=== PATIENT | female | born 1950 | race Caucasian/White ===

== ENCOUNTER → 2024-01-01 08:19 | Outpatient (REF) | payer MEDICARE, SELFPAY | LOC: HWRAD 08:19 | PROVIDERS: ATTENDING PHYSICIAN Internal Medicine Gastroenterology; FAMILY PHYSICIAN Nurse Practitioner | DX: K76.0 Fatty (change of) liver, not elsewhere classified (principal) | CPT/HCPCS: 76700 ==

== ENCOUNTER 2024-04-22 10:38 | Emergency (ER) | payer MEDICARE, SELFPAY ==
[2024-04-22 10:46] VITALS: BP 141/61
[2024-04-22 11:11] VITALS: BP 129/64
--- NOTE | 2024-04-22 11:19 | ED.GENMED ---
Addendum entered and electronically signed by Jurgen Butt PA-C 04/25/24 08:18:
On cefuroxime, appropriate per C&S
Original Note:
History of Present Illness
General
Chief Complaint: Change in Mental Status
Source: patient, records, spouse and family
Time Seen by Provider: 04/22/24 10:56
History of Present Illness
History of Present Illness:
73-year-old female with past medical history of hypertension, GERD, nonalcoholic liver cirrhosis, insulin-dependent diabetes and hypothyroidism presenting to the emergency department with family for that patient has had some increased confusion
since Sunday noting that she seems to be having trouble having conversations as well as performing routine tasks seem to be more difficult than usual. Family notes that patient has had waxing and waning chronic diarrhea for months, diminished p.o.
intake and difficulty sleeping as well. Family reported chills yesterday but no fever. Daughter performed a take-home urine test which she thought was positive but patient is not taking any medications for UTI at this time. Family stating that
patient's symptoms today seem similar to when she needed to be admitted to [facility] about 2 years ago with a pneumonia and flu which led to patient being in DKA. Patient herself complaints other than fatigue at this time.
Past History
Past History
ED Past Medical History: HTN, IDDM, Other (Cirrhosis, pulmonary embolism ) and Other (Diabetes, nonalcoholic cirrhosis, hypothyroidism, hypertension )
ED Past Surgical History: Orthopedic and Other
Social History
Tobacco: Non-smoker
Alcohol: None
Drug: None
Personal:
Living: with family
Family History
Family History: Other (stroke, CHF, )
Review of Systems
Review of Systems
All Other Systems: ROS reviewed and negative except as documented in HPI and ROS
Phy Exam
Physical Exam
Physical Exam:
GENERAL: Alert , in no apparent distress
EYE: clear conjunctiva b/l
HEAD: NCAT
ENT: o/p clr, mmm.
CARDIAC: Regular rate and rhythm .
LUNGS: Clear breath sounds bilaterally, no acute respiratory distress, no wheezes/rales/rhonchi
ABDOMEN: Soft, without focal tenderness, no r/g, no cvat, vertically oriented midline abdominal scar is well-healed, no large ascites
NEUROLOGICAL: Alert and oriented to self and place but unaware of time, tremor with arms extended, no clonus
SKIN: Warm and dry, skin intact.
MUSCULOSKELETAL: No edema, well perfused.
PSYCH: Normal and appropriate interaction.
Scores
Heart Failure Risk
Heart Failure Risk Score: Not Applicable
Heart Score for Chest Pain Patients
STEMI patient?: Not applicable
Withdrawal Assessment of Alcohol
Withdrawal Assessment Completed?: Not applicable
Course
Orders/Labs/Results
Orders:
Orders
04/22/24 11:12
Ammonia Urgent
CBC/With Diff [Complete Blood Count/With Diff] Urgent
CMP [Comprehensive Metabolic Panel] Urgent
04/22/24 11:17
Electrocardiogram (*1) Urgent
Reason for Study: Other
Other Reason for Exam: AMS
EKG- Treatment ONCE
CR Chest - 2 Views Urgent
Comment:
Reason For Exam: change in mental status
04/22/24 11:41
Urinalysis Reflex To Culture Urgent
Date Specimen was Collected: 04/22/24
Time Specimen was Collected: 11:32
Urine Microscopic Reflex Cult Urgent
Urine Culture Urgent
IFEANYI Source: U
Specimen Description:
Date Specimen was Collected: 04/22/24
Time Specimen was Collected: 11:32
04/22/24 11:55
0.9% Sodium Chloride 1000 ml [Nss] 1,000 ml IV BOLUS
04/22/24 13:26
CT Head W/o Iv Contrast Urgent
Comment:
Reason For Exam: change in mental status
CefTRIAXone [Rocephin] 1,000 mg IV NOW STA
Abnormal Lab Results
04/22/24 04/22/24
11:12 11:41
WBC 2.8 L 10^3/uL
(4.8-10.8)
RBC 4.16 L 10^6/uL
(4.20-5.40)
Hgb 11.5 L g/dL
(12.0-16.0)
Hct 33.9 L %
(37.0-47.0)
RDW 15.2 H %
(11.5-14.5)
Plt Count 74 L 10^3/uL
(130-400)
Absolute Lymphs (auto) 0.8 L 10^3/uL
(1.2-3.4)
Immature Gran % 0.7 H %
(0-0.5)
Monocytes % 11.6 H %
(1.7-9.3)
Eosinophils % 6.3 H %
(0-6)
BUN 36 H mg/dl
(7-17)
Glucose 302 H mg/dl
(70-99)
Total Bilirubin 1.5 H mg/dl
(0.2-1.3)
Ammonia < 9 L umol/L
(9-30)
Urine Ketones Trace A
(Negative)
Ur Occult Blood Reflex Trace A
(Negative)
Urine Nitrite (Reflex) Positive A
(Negative)
Leukocyte Esterase Rfl 1+ A
(Negative)
Urine Bacteria (Reflex) Moderate A
(Negative)
Urine Glucose 2+ A
(Negative)
04/22/24 11:12
04/22/24 11:12
Vital Signs
Initial and Last Documented VS:
Initial Vital Signs
Temp Pulse Resp BP Pulse Ox
98.5 F 86 20 141/61 95
04/22/24 10:46 04/22/24 10:46 04/22/24 10:46 04/22/24 10:46 04/22/24 10:46
Last Documented Vital Signs
Temp Pulse Resp BP Pulse Ox
98.6 F 91 20 140/76 98
04/22/24 14:12 04/22/24 14:12 04/22/24 14:12 04/22/24 14:12 04/22/24 14:12
MDM/Problems Addressed
Differential Diagnosis Includes:
Urinary tract infection, pneumonia, diabetic complication, encephalopathy, CVA/TIA, Parkinson's
MDM/Problems Addressed:
73-year-old female presenting to the emergency department with family or who is reporting a change in mental status since Sunday. They did not come to the hospital until today as family was having a hard time convincing patient to come to the
hospital due to previous concerns that patient has had being in the hospital. On arrival to the ER patient is pleasant and without any specific complaints. Patient without any focal physical exam findings. She does have history that is
significant and could potentially cause some altered mental status with her liver cirrhosis but patient does not appear to have any overwhelming ascites. Will check labs, urine and chest x-ray. Considering head CT. Disposition pending.
*Pulse Oximetry
Patient hypoxic: no
*Flavoring Machine Operator Interpretation
Rate: normal
Rhythm: sinus
*Critical Care Note
Total Time (30-74mins, 75-104mins- exclusive of procedures): Not Applicable
Data Reviewed
Review of Other/Old Records Reveals: Labs and Records
Source: spouse and family
Patient Management
Discussion with other providers: PCP
Escalation/DeEscalation of care consider admission/obs:
Patient head CT negative for acute pathology. She has remained stable without any focal findings. Will treat for UTI given nitrite and leukocyte positive urine. Rocephin 1g IV given in ED and Rx for cefuroxime sent to pharmacy. Patient and family
aware of return precautions. Notified PCP of patients visit and will ensure close follow up.
ED Attending Note
-
Portions of this chart may have been created with voice recognition software.� Occasional wrong word or��sound alike� substitutions may have occurred due to the inherent limitations of voice recognition software.
Discharge Plan
Departure
Patient Disposition: Home (Routine Discharge)
Date of Disposition: 04/22/24
Time of Disposition: 14:09
Patient with high blood pressure during this ER visit?: No
Discharge Problem:
Acute urinary tract infection
Instructions: Urinary Tract Infection, Adult ED
Prescriptions:
New
cefuroxime axetil 500 mg tablet
500 mg PO BID Qty: 20 0RF
No Action
insulin glargine [Lantus U-100 Insulin] 100 UNIT/ML solution
22 units SC HS
hydrochlorothiazide 50 MG tablet
50 mg PO DAILY
sertraline [Zoloft] 100 MG tablet
200 mg PO DAILY@0700
insulin lispro [Humalog KwikPen Insulin] 100 UNIT/ML insulin pen
8 units SC AC
atorvastatin 40 mg Tablet
40 mg PO DAILY
tolterodine 4 mg Capsule,Extended Release 24hr
4 mg PO DAILY
carvedilol 3.125 mg Tablet
3.125 mg PO BID
trazodone 100 mg Tablet
100 mg PO HS
Entresto 49-51 mg Tablet
1 tab PO BID
buspirone [BuSpar] 30 mg Tablet
30 mg PO BID
levothyroxine [Synthroid] 150 mcg Tablet
150 mcg PO DAILY
gabapentin 300 mg Capsule
300 mg PO TIDPRN PRN (Reason: nereve pains)
Mounjaro 5 mg/0.5 mL Pen Injector
5 mg SC QWEEK
metformin 500 MG tablet
1,000 mg PO BID
Rx Instructions:
HOLD post cath- OK to resume on Sunday, 11/17 in AM
Referrals:
Tala Motley CRNP [Family Provider] -
Interventions
Interventions:
*Risk Screen - Suicide Last Done: 04/22/24 14:14
*General Assessment Last Done: 04/22/24 12:18
*Neglect/Abuse Screening Last Done: 04/22/24 12:18
*ED COVID-19 Vaccine History Last Done: 04/22/24 12:18
*Nursing Disposition Last Done: 04/22/24 14:14
ED- Pulmonary Assessment Last Done: 04/22/24 14:14
ED-Psychological Assessment Last Done: 04/22/24 14:14
ED- Neurological Assessment Last Done: 04/22/24 12:18
ED- Cardiac Assessment Last Done: 04/22/24 14:14
ED Swallowing Screen Last Done: 04/22/24 12:18
Discharge Date and Time
Print Language: NAMIBIAN
[2024-04-22 11:36] LABS: % Basophils 0.7 % (0-2); % Eosinophils 6.3 % (0-6); % Immature Granulocytes 0.7 % (0-0.5); % Lymphocytes 26.4 % (20.5-51.1); % Monocytes 11.6 % (1.7-9.3); % Neutrophils 54.3 % (42.2-75.2); Absolute Eosinophils 0.2 10^3/uL (0-0.7); Absolute Lymphocytes 0.8 10^3/uL (1.2-3.4); Absolute Monocytes 0.3 10^3/uL (0.1-0.6); Absolute Neutrophils 1.5 10^3/uL (1.4-6.5); Hematocrit 33.9 % (37.0-47.0); Hemoglobin 11.5 g/dL (12.0-16.0); Mean Corp Hgb Conc. 33.9 g/dL (33.0-37.0); Mean Corpuscular Hgb 27.6 pg (27.0-31.0); Mean Corpuscular Volume 81.5 fL (81.0-99.0); Mean Platelet Volume 10.1 fL (7.4-10.4); Nucleated Red Blood Cells % 0 %; Platelet Count 74 10^3/uL (130-400); Red Blood Cell Count 4.16 10^6/uL (4.20-5.40); Red Cell Dist. Width 15.2 % (11.5-14.5); White Blood Cell Count 2.8 10^3/uL (4.8-10.8)
[2024-04-22 11:37] LABS: Ammonia < 9 umol/L (9-30)
[2024-04-22 11:48] LABS: ALT (SGPT) 22 U/L (0-35); AST (SGOT) 34 U/L (14-36); Albumin 3.8 g/dl (3.5-5.0); Alkaline Phosphatase 120 U/L (38-126); Blood Urea Nitrogen 36 mg/dl (7-17); Calcium 9.2 mg/dl (8.4-10.2); Carbon Dioxide 22 mmol/L (22-30); Chloride 106 mmol/L (98-107); Glucose 302 mg/dl (70-99); Potassium 4.6 mmol/L (3.5-5.1); Sodium 137 mmol/L (135-145); Total Bilirubin 1.5 mg/dl (0.2-1.3); Total Protein 6.8 g/dl (6.3-8.2); eGFR > 60.00
[2024-04-22 11:56] LABS: Urine Albumin Trace (Neg - Trace); Urine Bilirubin Negative (Negative); Urine Character Clear (Clear); Urine Color Yellow; Urine Glucose 2+ (Negative); Urine Ketone Trace (Negative); Urine Leukocyte 1+ (Negative); Urine Nitrite Positive (Negative); Urine Occult Blood Trace (Negative); Urine Specific Gravity 1.025 (<1.030); Urine Urobilinogen Negative (Neg - 1+)
[2024-04-22 12:09] VITALS: BP 121/82
[2024-04-22] MEDS: NSS 1000 IV (12:28)
[2024-04-22 13:15] LABS: Urine Red Blood Cell 0-2 /HPF (0-2)
[2024-04-22 13:16] LABS: Urine Bacteria Moderate (Negative)
[2024-04-22] MEDS: ROCEPHIN 1000 MG IV (14:06)
[2024-04-22 14:12] VITALS: BP 140/76
== END 2024-04-22 14:40 | disposition home or self-care (01) ==
LOC: EMR 10:38
PROVIDERS: Physician Assistant Medical; EMERGENCY PHYSICIAN Emergency Medicine; FAMILY PHYSICIAN Nurse Practitioner
DX: N39.0 Urinary tract infection, site not specified (principal); I10 Essential (primary) hypertension; K21.9 Gastro-esophageal reflux disease without esophagitis; K74.60 Unspecified cirrhosis of liver; E03.9 Hypothyroidism, unspecified; E11.9 Type 2 diabetes mellitus without complications
CPT/HCPCS: 99285; 96374; 96361; 70450; 71046; 80053; 81003; 81015; 82140; 85025; 87086; 87088; 87186; 93005

== ENCOUNTER → 2024-08-29 12:22 | Outpatient (REF) | payer MEDICARE, SELFPAY | LOC: HWRAD 12:22 | PROVIDERS: ATTENDING PHYSICIAN Nurse Practitioner Adult Health | DX: J18.9 Pneumonia, unspecified organism (principal) | CPT/HCPCS: 71046 ==

== ENCOUNTER 2025-01-26 08:32 | Inpatient (IN) | payer MEDICARE, SELFPAY ==
[2025-01-22 18:57] VITALS: BP 113/58
[2025-01-22 19:20] LABS: % Basophils 0.5 % (0-2); % Eosinophils 5.5 % (0-6); % Immature Granulocytes 0.5 % (0-0.5); % Lymphocytes 23.4 % (20.5-51.1); % Monocytes 8.9 % (1.7-9.3); % Neutrophils 61.2 % (42.2-75.2); Absolute Eosinophils 0.2 10^3/uL (0-0.7); Absolute Lymphocytes 0.9 10^3/uL (1.2-3.4); Absolute Monocytes 0.3 10^3/uL (0.1-0.6); Absolute Neutrophils 2.3 10^3/uL (1.4-6.5); Hematocrit 36.8 % (37.0-47.0); Hemoglobin 12.5 g/dL (12.0-16.0); Mean Corpuscular Hgb 28.5 pg (27.0-31.0); Mean Platelet Volume 9.9 fL (7.4-10.4); Nucleated Red Blood Cells % 0 %; Platelet Count 72 10^3/uL (130-400); Red Blood Cell Count 4.38 10^6/uL (4.20-5.40); Red Cell Dist. Width 15.2 % (11.5-14.5); White Blood Cell Count 3.8 10^3/uL (4.8-10.8)
[2025-01-22 19:30] LABS: ALT (SGPT) 26 U/L (0-35); AST (SGOT) 35 U/L (14-36); Albumin 3.8 g/dl (3.5-5.0); Alkaline Phosphatase 179 U/L (38-126); Blood Urea Nitrogen 24 mg/dl (7-17); Carbon Dioxide 24 mmol/L (22-30); Chloride 102 mmol/L (98-107); Glucose 369 mg/dl (70-99); Potassium 4.8 mmol/L (3.5-5.1); Sodium 136 mmol/L (135-145); Total Bilirubin 1.5 mg/dl (0.2-1.3); Total Protein 7.3 g/dl (6.3-8.2); eGFR > 60.00
[2025-01-22 19:46] LABS: NT-proBNP 461 pg/ml; Troponin I < 0.012 ng/ml
[2025-01-22 21:03] VITALS: BP 131/100
[2025-01-22 21:13] VITALS: BP 124/61
[2025-01-22 21:36] VITALS: BMI 36.2
[2025-01-22 22:00] VITALS: BP 132/90
--- NOTE | 2025-01-22 22:24 | ED.GENMED ---
History of Present Illness
General
Chief Complaint: Swelling
Source: patient and family
Exam Limitations: none
Time Seen by Provider: 01/22/25 21:25
Nursing documentation reviewed up to this point in time: agreed with
History of Present Illness
History of Present Illness:
Patient is a 74-year-old female with past medical history of cirrhosis, hypertension hyperlipidemia brought to the ER by daughter for evaluation. Daughter reports patient has had increasing lower extremity swelling for the past several days and
increased abdominal swelling. Daughter also notes the patient seems intermittently confused and not herself which is getting worse over the past 3 months. She has not seen her sport internship, Dr. Rodriguez at [employer] for about 2 years. Daughter also
notes the patient seems a little more short of breath than normal. Patient is aware that she does not feel herself and feels intermittently confused and also reports she is having frequent falls. She did hit her head over a week ago after falling
down 3 steps.
Past History
Past History
ED Past Medical History: HTN, IDDM, Other (Cirrhosis, pulmonary embolism ) and Other (Diabetes, nonalcoholic cirrhosis, hypothyroidism, hypertension )
ED Past Surgical History: Orthopedic and Other
Social History
Tobacco: Non-smoker
Alcohol: None
Drug: None
Personal:
Living: with family
Family History
Family History: Other (stroke, CHF, )
Review of Systems
Review of Systems
Allergies reviewed?: Yes
Other source history: family
All Other Systems: ROS reviewed and negative except as documented in HPI and ROS
Constitutional: Reports fatigue
EENT: Reports no symptoms
Respiratory: Reports trouble breathing
Cardiac: Reports no symptoms
ABD/GI: Reports no symptoms
: Reports no symptoms
Musculoskeletal: Reports other (l/e swelling )
Skin: Reports no symptoms
Neurological: Reports other (Intermittent confusion)
Psychiatric: Reports no symptoms
Phy Exam
General Physical Exam
General Presentation: no apparent distress
General age: appears older than age
General Skin: warm and dry
General Habitus: elderly
General Mental: alert
General Hydration: appears well hydrated
Cardiovascular Exam
Cardiovascular Exam: regular rate/rhythm, no murmur and normal peripheral pulses
Pulmonary Exam
Pulmonary Exam: lungs clear and no respiratory distress
Gastrointestinal Exam
Gastrointestinal Exam: other (large abdomen soft questionable ascites )
Neurological Exam
Neurological Exam: alert and oriented x3
Musculoskeletal Exam
Musculoskeletal Exam: full ROM and other (Bilateral lower extremities with edema)
Skin Exam
Skin Exam: normal color and warm/dry
Psychiatric Exam
Psychiatric Exam: normal mood/affect
Scores
Heart Failure Risk
Heart Failure Risk Score: Not Applicable
Course
Orders/Labs/Results
Orders:
Orders
01/22/25 19:01
Electrocardiogram (*1) Urgent
Reason for Study: Shortness of Breath
EKG- Treatment ONCE
Comprehensive Metabolic Panel Urgent
01/22/25 19:07
Pro-BNP [NT-proBNP] Urgent
Troponin I Urgent
01/22/25 19:18
Complete Blood Count/With Diff Urgent
01/22/25 22:08
Chest [CR Chest - 2 Views ] Urgent
Comment:
Reason For Exam: sob
01/22/25 22:50
CT Head W/o Iv Contrast Urgent
Comment:
Reason For Exam: trauma
01/22/25 22:51
0.9% Sodium Chloride 500 ml [Nss] 500 ml IV BOLUS
01/22/25 23:32
Ammonia Urgent
01/23/25 00:00
US Periph Venous LOWER Ext Zaki Urgent
Reason For Exam: swelling
01/23/25 00:11
Urinalysis Reflex To Culture Urgent
Date Specimen was Collected: 01/23/25
Time Specimen was Collected: 00:11
Abnormal Lab Results
01/22/25 01/22/25
19:01 19:18
WBC 3.8 L 10^3/uL
(4.8-10.8)
Hct 36.8 L %
(37.0-47.0)
RDW 15.2 H %
(11.5-14.5)
Plt Count 72 L 10^3/uL
(130-400)
Absolute Lymphs (auto) 0.9 L 10^3/uL
(1.2-3.4)
BUN 24 H mg/dl
(7-17)
Glucose 369 H mg/dl
(70-99)
Total Bilirubin 1.5 H mg/dl
(0.2-1.3)
Alkaline Phosphatase 179 H U/L
(38-126)
01/22/25 19:18
01/22/25 19:01
Vital Signs
Initial and Last Documented VS:
Initial Vital Signs
Temp Pulse Resp BP Pulse Ox
98.6 F 99 18 113/58 96
01/22/25 18:57 01/22/25 18:57 01/22/25 18:57 01/22/25 18:57 01/22/25 18:57
Last Documented Vital Signs
Temp Pulse Resp BP Pulse Ox
98.5 F 97 29 132/90 98
01/22/25 21:03 01/22/25 23:35 01/22/25 22:45 01/22/25 22:00 01/22/25 22:45
MDM/Problems Addressed
Differential Diagnosis Includes:
Not limited to head injury, infection, dehydration, electro abnormality, cirrhosis, elevated ammonia
MDM/Problems Addressed:
Patient is a 74-year-old female with history of cirrhosis has not seen a liver specialist for the past 2 years and has not had a tap in over many years presents for increasing swelling to legs and abdomen no fevers. Daughter reports patient seems
to be confused the past several months patient does complain of feeling winded with ambulation frequent falls and recent head injury. She is not on blood thinners. Patient presents awake alert no acute distress she has obvious swelling to lower
extremities ultrasound negative. No acute findings on chest. CT of the head was done due to frequent falls with head injury and negative. Patient's ammonia level is normal her hemoglobin is stable proBNP is 461. 72,000 which is baseline. On
exam patient does have obvious distended abdomen , nontender. Her platelets however are low at 72,000 (baseline)
Chronic conditions affecting care:
Cirrhosis
*Radiology
Radiology exam reviewed: radiology read reviewed
*Pulse Oximetry
Patient hypoxic: no
*EKG
Interpreted by ED Provider?: Yes
Heart Rate: 98
Rate: normal
Rhythm: sinus
Ischemia: non-specific ST changes
*Critical Care Note
Total Time (30-74mins, 75-104mins- exclusive of procedures): Not Applicable
Data Reviewed
Review of Other/Old Records Reveals: Labs
ED Attending Note
-
Portions of this chart may have been created with voice recognition software.� Occasional wrong word or��sound alike� substitutions may have occurred due to the inherent limitations of voice recognition software.
Discharge Plan
Departure
Patient Disposition: Admit
Date of Disposition: 01/23/25
Time of Disposition: 01:13
Admit to: Med/Surg
Admit to doctor: hospitalist
Presentation/result/management discussed w/ accepting MD/DO: Hospitalist
Patient with high blood pressure during this ER visit?: Yes
Condition: Fair
Covid-19: Not Applicable
Discharge Problem:
Bilateral edema of lower extremity, Falls frequently, Thrombocytopenia
Prescriptions:
No Action
insulin glargine [Lantus U-100 Insulin] 100 UNIT/ML solution
22 units SC HS
hydrochlorothiazide 50 MG tablet
50 mg PO DAILY
sertraline [Zoloft] 100 MG tablet
200 mg PO DAILY@0700
insulin lispro [Humalog KwikPen Insulin] 100 UNIT/ML insulin pen
8 units SC AC
atorvastatin 40 mg Tablet
40 mg PO DAILY
tolterodine 4 mg Capsule,Extended Release 24hr
4 mg PO DAILY
carvedilol 3.125 mg Tablet
3.125 mg PO BID
trazodone 100 mg Tablet
100 mg PO HS
Entresto 49-51 mg Tablet
1 tab PO BID
buspirone [BuSpar] 30 mg Tablet
30 mg PO BID
levothyroxine [Synthroid] 150 mcg Tablet
150 mcg PO DAILY
gabapentin 300 mg Capsule
300 mg PO TIDPRN PRN (Reason: nereve pains)
Mounjaro 5 mg/0.5 mL Pen Injector
5 mg SC QWEEK
metformin 500 MG tablet
1,000 mg PO BID
Rx Instructions:
HOLD post cath- OK to resume on Sunday, 11/17 in AM
cefuroxime axetil 500 mg tablet
500 mg PO BID Qty: 20 0RF
Referrals:
Radha Li CRNP [Family Provider] -
Interventions
Interventions:
*Risk Screen - Suicide Last Done: 01/22/25 18:57
*General Assessment Last Done: 01/22/25 18:57
*Neglect/Abuse Screening Last Done: 01/22/25 18:57
*ED- Fall Risk Assessment Last Done: 01/22/25 21:17
*ED COVID-19 Vaccine History Last Done: 01/22/25 21:36
ED- Cardiac Assessment Last Done: 01/22/25 21:40
ED-Musculoskeletal Assessment Last Done: 01/22/25 21:40
ED- Neurological Assessment Last Done: 01/22/25 21:40
ED- Pulmonary Assessment Last Done: 01/22/25 21:40
ED-Skin Assessment Last Done: 01/22/25 21:40
Discharge Date and Time
Print Language: ZAMBIAN
[2025-01-22] MEDS: NSS 500 IV (23:40)
[2025-01-22 23:41] VITALS: BP 106/64
[2025-01-23] VITALS (12 sets, daily range): BP systolic 90–146; BP diastolic 54–94; PULSE 84–103; BMI 37.0
[2025-01-23 00:03] LABS: Ammonia 12 umol/L (9-30)
[2025-01-23 01:20] LABS: Urine Albumin 2+ (Neg - Trace); Urine Bilirubin Negative (Negative); Urine Character Clear (Clear); Urine Color Yellow; Urine Glucose 4+ (Negative); Urine Ketone Negative (Negative); Urine Leukocyte 3+ (Negative); Urine Nitrite Positive (Negative); Urine Occult Blood 1+ (Negative); Urine Urobilinogen Negative (Neg - 1+)
[2025-01-23 02:10] LABS: Urine Amorphous Seen; Urine Squamous Cell >30 /LPF (Few)
[2025-01-23 02:11] LABS: Urine Bacteria Many (Negative); Urine White Cell 70-80 /HPF (0-5)
--- NOTE | 2025-01-23 02:24 | HPS.HSE ---
Family Physician
-
Family Physician: Radha Li
Chief Complaint
-
Frequent Falls
History of Present Illness
Patient is a 74y F with PMH significant for non-alcoholic cirrhosis, DM-II and obesity s/p gastric bypass who presents to ED complaining of frequent falls. Patient reports that she fell down 4 stairs on Sunday. She did strike her head during
that fall, but denies any LOC. She denies any prodrome of chest pain, lightheadedness, dizziness, etc. Patient notes that she was unable to get up unassisted and remained on the floor for about 3 hours at that time. Yesterday, she suffered
another fall in her bedroom - though she notes that her caught her and she suffered no injuries.
Family has reportedly noted that patient has been more confused than usual.
Patient complains of urinary frequency and incontinence.
She has also noted recent increased in abdominal girth and new LE swelling - which she states has occurred since her fall on Sunday.
She has diagnosis of cirrhosis - though she apparently has not seen her GI / Water Pollution Specialist in several years.
No recent medication changes.
Medical History
Past Medical History
Past Medical History: Reports Other
Additional Past Medical History:
Non-Alcoholic Cirrhosis
Hypothyroidism
DM-II with Neuropathy and Retinopathy
Obesity
Pulmonary Embolism
Spinal Stenosis
Non-Melanoma Skin Cancer
GERD
VENESSA
ADHD
Pancytopenia
CVA / TIA
Anxiety
Past Surgical History: Reports Other
Additional Past Surgical History:
ORIF Left Shoulder
Gastric Bypass
Right SINA
Lumbar Laminectomy
Hernia Repair
Mohs Surgery
Bone Marrow Biopsy
Social History
Tobacco: Non-smoker
Alcohol: None
Drug: None
Family History
Family History: CAD
Allergies / Home Medications
Allergies reflects when Allergies were last updated in [employer].
Home Medications with original date entered in [employer]
Allergy/Medication List:
Allergies
Allergy/AdvReac Type Severity Reaction Status Date / Time
NKA - No Known Allergies Allergy nkda Uncoded 01/22/25 21:19
Home Medications
hydrochlorothiazide 50 mg tablet 50 mg PO DAILY 11/15/18
insulin glargine 100 unit/mL subcutaneous solution (Lantus U-100 Insulin) 22 units SC HS 11/15/18
insulin lispro 100 unit/mL subcutaneous pen (Humalog KwikPen (U-100) Insulin) 8 units SC AC 11/15/18
sertraline 100 mg tablet (Zoloft) 200 mg PO DAILY@0700 11/15/18
sacubitril 49 mg-valsartan 51 mg tablet (Entresto) 1 tab PO BID 12/20/22
tolterodine 4 mg capsule,extended release 24 hr 4 mg PO DAILY 12/20/22
trazodone 100 mg tablet 100 mg PO HS 12/20/22
gabapentin 300 mg capsule 300 mg PO TIDPRN PRN nereve pains 04/22/24
levothyroxine 150 mcg tablet (Synthroid) 150 mcg PO DAILY 04/22/24
metformin 500 mg tablet 1,000 mg PO BID 04/22/24
tirzepatide 5 mg/0.5 mL subcutaneous pen injector (Mounjaro) 5 mg SC QWEEK 04/22/24
Review of Systems
-
History Source: Patient
A 12 point ROS was completed and negative except as noted: Yes
Constitutional: Reports Fatigue; Denies Fever or Chills
EENT: Denies Sore Throat
Respiratory: Denies Cough or Trouble Breathing
Cardiac: Denies Chest Pain or Palpitations
Abdomen/GI: Reports Other (Abdominal distention.); Denies Abdominal Pain, Nausea, Vomiting or Diarrhea
: Reports Frequency and Incontinence; Denies Dysuria
Musculoskeletal: Reports Edema; Denies Joint Pain
Neurological: Reports Weakness; Denies Dizzy or Headache
Physical Exam
Vital Signs
Vital Signs
Temp Pulse Resp BP Pulse Ox
98.5 F 93 19 115/57 93
01/22/25 21:03 01/23/25 02:00 01/23/25 02:00 01/23/25 02:00 01/23/25 02:00
Physical Exam
General: Other (74y F in no acute distress.)
HEENT: Moist mucous membranes and PERRLA
Respiratory: Clear; No Wheezes, Rales or Rhonchi
Cardiac: S1/S2, Regular Rhythm (with ectopy) and Murmur (II/ LOVE)
GI: Other (Abdomen is distended with areas of firmness. No significant tenderness / rebound / guarding. Pos BS. )
Musculoskeletal: No Clubbing, No Cyanosis and Other (2+ pitting edema to the knees bilaterally. Generalized rubor. No skin breakdown.)
Neuro: AO x 3
Laboratory Results
-
01/22/25 19:18
01/22/25 19:01
Laboratory Results
Total Bilirubin 1.5 mg/dl (0.2-1.3) H 01/22/25 19:01
AST 35 U/L (14-36) 01/22/25 19:01
ALT 26 U/L (0-35) 01/22/25 19:01
Alkaline Phosphatase 179 U/L (38-126) H 01/22/25 19:01
Troponin I < 0.012 ng/ml 01/22/25 19:07
Impression/Plan
-
A/P: Patient is a 74y F with PMH significant for cirrhosis and DM-II who presents to ED for evaluation s/p recurrent falls over the past week.
Frequent Falls
- Observe overnight for further evaluation and treatment.
- Generalized weakness / fatigue with multiple potential chronic and acute etiologies.
- No evidence of acute injury / trauma. CT head was unremarkable.
- Add CT A/P given increased distention reportedly noted following her fall on Sunday.
- PT / OT evaluations.
Cirrhosis
- Poorly compliant with no follow-up in about 2 years.
- Not on chronic diuretic regimen, etc.
- Check CT A/P as noted above.
- Consider IR eval for paracentesis if any significant ascites.
DM-II, Uncontrolled
Peripheral Neuropathy
- Hyperglycemia without anion gap / acidosis / etc.
- Continue basal insulin and adjust dosing as needed.
- Follow glucose and cover with SSI as needed.
- Hold metformin / Ozempic.
- Update A1C.
- Continue gabapentin for neuropathy.
Pancytopenia
- Chronic and mostly unchanged (anemia has improved from prior).
- Has bone marrow biopsy in the past which was reportedly unremarkable.
- ? secondary to cirrhosis.
- Follow cell counts for any changes.
UTI
- Patient reports recent urinary symptoms including urgency and incontinence.
- UA potentially suggestive of UTI (though contaminated with > 30 squamous cells / hpf).
- IV ceftriaxone for now pending culture data.
- Follow for changes in symptoms.
TME - Acute / Chronic / Both
- Family notes recent intermittent confusion.
- ? due to chronic cirrhosis, acute UTI, etc.
- Ammonia level unremarkable.
- Follow for changes.
- Was able to answer all questions / provide detailed history during my visit.
Hypothyroidism
- Continue current T4 dose for now.
- Update TFTs and adjust dosing if needed.
Anxiety / Depression
- Stable. Continue current psychotropic med regimen.
Obesity due to excess calories
s/p Gastric Bypass
- Affects all aspects of care.
- Encourage healthy diet and activity as able with goal of weight loss.
DVT Prophylaxis
History of PE
- Not on chronic oral anticoagulation.
- Subcut heparin for prophylaxis.
Code Status: Full
[2025-01-23] MEDS: OMNIPAQUE 50 ML PO (02:55)
[2025-01-23] MEDS: ROCEPHIN 1000 MG IV (04:29)
[2025-01-23] MEDS: STERILE WATER FOR INJECTION 20 ML IV (04:31)
[2025-01-23] MEDS: SYNTHROID 150 MCG PO (06:02)
[2025-01-23] MEDS: ZOLOFT 200 MG PO (06:02)
[2025-01-23 06:05] LABS: Glucose - Point of Care 297 mg/dl (70-99)
[2025-01-23 06:30] LABS: Hematocrit 32.8 % (37.0-47.0); Hemoglobin 11.2 g/dL (12.0-16.0); Mean Corp Hgb Conc. 34.1 g/dL (33.0-37.0); Mean Corpuscular Hgb 28.8 pg (27.0-31.0); Mean Corpuscular Volume 84.3 fL (81.0-99.0); Mean Platelet Volume 9.9 fL (7.4-10.4); Platelet Count 58 10^3/uL (130-400); Red Blood Cell Count 3.89 10^6/uL (4.20-5.40); White Blood Cell Count 2.8 10^3/uL (4.8-10.8)
[2025-01-23 07:00] LABS: ALT (SGPT) 21 U/L (0-35); AST (SGOT) 30 U/L (14-36); Alkaline Phosphatase 140 U/L (38-126); Blood Urea Nitrogen 22 mg/dl (7-17); Calcium 8.7 mg/dl (8.4-10.2); Carbon Dioxide 24 mmol/L (22-30); Chloride 103 mmol/L (98-107); Direct Bilirubin 0.4 mg/dl (0.0-0.4); Estimated Creatinine Clearance 71 ml/min; Glucose 320 mg/dl (70-99); Potassium 4.3 mmol/L (3.5-5.1); Sodium 136 mmol/L (135-145); Total Bilirubin 1.5 mg/dl (0.2-1.3); Total Protein 6.2 g/dl (6.3-8.2); eGFR > 60.00
[2025-01-23] MEDS: NOVOLOG FLEXPEN-MODERATE RESISTANCE 5 UNITS SC ×2 (07:20→12:40)
[2025-01-23 07:53] LABS: Free T4 0.73 ng/dl (0.78-2.19)
--- NOTE | 2025-01-23 08:04 | W.PN.HOSP.TC ---
Today's Communication/Plan
-
Ascites -- more than 4000 cc of peritoneal fluid drained
PMNs 244 -- patient got antibiotics before the paracentesis so the actual peritoneal PMNs may have been greater
Continue antibiotics, follow cultures
Assessment / Plan
Assessment / Plan
Physical Exam
General: Other (74y F in no acute distress.)
HEENT: Moist mucous membranes and PERRLA
Respiratory: Clear; No Wheezes, Rales or Rhonchi
Cardiac: S1/S2, Regular Rhythm (with ectopy) and Murmur (II/ LOVE)
GI: Other (Abdomen is distended with areas of firmness. No significant tenderness / rebound / guarding. Pos BS. )
Musculoskeletal: No Clubbing, No Cyanosis and Other (2+ pitting edema to the knees bilaterally. Generalized rubor. No skin breakdown.)
Neuro: AO x 3
Assessment/Plan
74y F with PMH significant for non-alcoholic cirrhosis, DM-II and obesity s/p gastric bypass who presented complaining of frequent falls. Patient reported that she fell down 4 stairs on 01/20/25. She did strike her head during that fall, but denied
any LOC. She denied any prodrome of chest pain, lightheadedness, dizziness, etc. Patient noted that she was unable to get up unassisted and remained on the floor for about 3 hours at that time. On the day before presentation, patient suffered
another fall in her bedroom - though she noted that her caught her and she suffered no injuries.
Family has reportedly noted that patient has been more confused than usual.
Patient complained of urinary frequency and incontinence.
She has also noted recent increased in abdominal girth and new LE swelling - which she states has occurred since her fall on Sunday.
She has diagnosis of cirrhosis - though she apparently has not seen her GI / Pediatric Nurse in several years.
No recent medication changes.
Frequent Falls
- Observe overnight for further evaluation and treatment.
- Generalized weakness / fatigue with multiple potential chronic and acute etiologies.
- No evidence of acute injury / trauma. CT head with complete opacification of the right frontal sinus and visualized portion of the right maxillary sinus
- CXR with streaky opacity within the right midlung zone, suggestive of subsegmental atelectasis or early pneumonia, per radiologist
- Ascites contributing? (please see below)
- PT / OT evaluations.
Cirrhosis
Moderate intraperitoneal ascites on CT Imaging
- Poorly compliant with no follow-up in about 2 years.
- Not on chronic diuretic regimen, etc.
- CT A/P noted with moderate ascites
- Consider IR eval for paracentesis if any significant ascites
- 4200 cc of cloudy yellow ascitic fluid was taken out by IR on January 23, 2025
- Follow studies -- 244 PMNs -- but patient did get Ceftriaxone prior to the paracentesis -- so she still may have had SBP
Splenomegaly, suggestive of portal hypertension on CT Imaging
DM-II, Uncontrolled
Peripheral Neuropathy
- Hyperglycemia without anion gap / acidosis / etc.
- Continue basal insulin and adjust dosing as needed.
- Follow glucose and cover with SSI as needed.
- Hold metformin / Ozempic.
- Update A1C.
- Continue gabapentin for neuropathy (patient did say she is unsure of the dose of Gabapentin she is supposed to be on at home)
Pancytopenia
- Chronic and mostly unchanged (anemia has improved from prior).
- Has bone marrow biopsy in the past which was reportedly unremarkable.
- ? secondary to cirrhosis.
- Follow cell counts for any changes.
- Platelet count dropped (but still above 50) as of January 23, 2025, but this could be from hemodilution
Mild coronary arterial calcification on CT Imaging
- Outpatient follow-up
UTI
- Patient reports recent urinary symptoms including urgency and incontinence.
- UA potentially suggestive of UTI (though contaminated with > 30 squamous cells / hpf).
- IV ceftriaxone for now pending culture data.
- Follow for changes in symptoms.
TME - Acute / Chronic / Both
- Family noted recent intermittent confusion.
- ? due to chronic cirrhosis, acute UTI, etc.
- Ammonia level unremarkable.
- Follow for changes.
- Was able to answer all questions / provide detailed history during my visit.
Hypothyroidism
- TSH 27.2
- Patient stated that she is unsure of her home levothyroxine dose
- Increase current T4 dose by 12.5 to 162.5 daily
Anxiety / Depression
- Stable. Continue current psychotropic med regimen.
Obesity due to excess calories
s/p Gastric Bypass
- Affects all aspects of care.
- Encourage healthy diet and activity as able with goal of weight loss.
DVT Prophylaxis
History of PE
- Not on chronic oral anticoagulation.
- Subcut heparin for prophylaxis. -- CHANGE TO LOVENOX starting tomorrow
Code Status: Full
This is non-billable note
Anticipated Discharge: > 48 hours
Subjective/Interval History
-
Date of Service: January 23, 2025
Good morning, pt 410-1 - Lazara Granda - She is complaining of some acid reflux/heartburn. Is she able to have some tums or something to alleviate this? Her daughter also brought in all of her medications, I made a list and am going to update her
home med list now. Thanks!
Sorry forgot to mention while you were here, she is unsure of dosage for gabapentin and synthroid. She states her dog got into her pills and haven�t replaced some so unable to verify. But everything else should be accurate! Thanks!
Objective Data
-
Labs:
Laboratory Results
01/23/25
06:12
WBC 2.8 L
Hgb 11.2 L
Hct 32.8 L
Plt Count 58 L
Sodium 136
Potassium 4.3
Chloride 103
Carbon Dioxide 24
BUN 22 H
Creatinine 0.8
Glucose 320 H
Calcium 8.7
Total Bilirubin 1.5 H
AST 30
ALT 21
Alkaline Phosphatase 140 H
Vital Signs:
Vital Signs
Temp Pulse Resp BP Pulse Ox
97.9 F 96 22 138/72 100
01/23/25 03:45 01/23/25 03:45 01/23/25 03:45 01/23/25 03:45 01/23/25 03:45
[2025-01-23] MEDS: NSS (PRESERVATIVE FREE) 10 ML IV (08:42)
[2025-01-23] MEDS: PROTONIX IV 40 MG IV (08:42)
[2025-01-23] MEDS: ENTRESTO 49 MG/51 MG 1 TAB PO ×2 (08:43→21:36)
[2025-01-23] MEDS: NEURONTIN 100 MG PO ×3 (08:43→21:36)
[2025-01-23] MEDS: HEPARIN 5000 UNITS SC ×2 (08:43→21:35)
[2025-01-23 10:21] LABS: Glycohemoglobin (HgbA1c) 10.4 % (4.0-5.6)
[2025-01-23 11:24] LABS: Body Fluid Albumin < 1.0 g/dl; Body Fluid Amylase < 30 U/L; Body Fluid LDH 79 U/L; Body Fluid Protein 2.1 g/dl
[2025-01-23 12:01] LABS: Body Fluid Mononuclear 80.3 %; Body Fluid Polymorphonuclear 19.7 %; Body Fluid WBC 304 /CUMM
[2025-01-23 12:07] LABS: Body Fluid Second Tech EF
[2025-01-23 12:09] LABS: Glucose - Point of Care 290 mg/dl (70-99)
--- NOTE | 2025-01-23 15:43 | CON.GI ---
Addendum entered and electronically signed by Reva Coburn DO 01/23/25 18:06:
Patient seen and examined independently of the PA. I agree with her note and additions below
Lazara is a 74-year-old obese female with known cirrhosis secondary to Rodriguez, insulin-dependent uncontrolled diabetes with a A1c of over 10, sleep apnea who comes in with falls. She has not seen her GI doctor, Dr. Rodriguez who also specializes in liver
disease in about 2 years. She had been following him for known cirrhosis in the past. She has never had decompensated liver disease until the past couple of months where she has noticed increased abdominal girth as well as more recent confusion as
noticed by her family as well.
# Decompensated Rodriguez cirrhosis - MELD 3.0= 13 (based on 01/23/25 labs)
--Patient with new onset ascites requiring paracentesis that was negative for SBP. 4.2 L was removed with no albumin necessary. Normal creatinine
-- Currently being treated for UTI which may have exacerbated the hepatic encephalopathy
-- Patient needs to follow-up with her already known GI/log marker, Dr. Rodriguez at [facility]. I told her to call Sunday to make an appointment
-- Patient will need outpatient EGD, hepatoma screening every 6 months.
-- No hepatoma on CT done today, her CT is consistent with portal hypertension with splenomegaly. No filling defects in the opacified portal veins, normal IVC
# Hepatic encephalopathy -patient has tardive dyskinesia/tremors at baseline and this is not asterixis but she does have grade 1 hepatic encephalopathy
-- Likely exacerbated by UTI
--Electrolytes are normal, kidney functions normal, no signs of GI bleeding
-- Treat the UTI, start Xifaxan and low-dose lactulose
-- Needs better control of glucose
# Ascites -negative for SBP, 4.2 L removed. This was her first paracentesis no albumin necessary
-- Kidney function is normal,
-- start diuretics started 50 mg of Aldactone and 20 mg of Lasix -- Which can be titrated up
2 g sodium diet--, regular weights
Patient needs to see Dr. Rodriguez within 4wks post discharge and monitor MELD labs 1 wk post discharge to monitor her electrolytes and kidney function.
We will sign off, please call back with questions
Original Note:
Consultation
-
Date/Time Consultation Requested: 01/23/25 1506
Date/Time Consultation Performed: 01/23/25 1600
Requesting Provider: Dr. Velásquez
Performing Provider: Dr. Coburn / Teresa Friend PA-C
Reason for Consultation: cirrhosis
Medical History
Chief Complaint / HPI
Chief Complaint: abdominal distension
History of Present Illness:
This is a 74 year old female with a past medical history of non-alcoholic cirrhosis, insulin-dependent DM (on Mounjaro), HTN, hyperlipidemia, VENESSA, and obesity who presented to the ER after she fell 3 days ago at home. She denies feeling confused,
but upon review of medical records, her family members did report some increased confusion recently. She tells me she was diagnosed with cirrhosis years ago, and was previously following with GI at [facility], Dr. Rodriguez, but that she has not seen him
in about 2 years. She cannot elaborate when asked why she did not continue to follow up with him for her liver disease. Patient denies alcohol use. She denies a family history of liver disease. She also complained of increasing abdominal distension
as well as lower extremity edema.
Labs reviewed, with CBC showing pancytopenia and platelet count of 58. LFTs as follows: total bilirubin 1.5, AST 35, ALT 26, alk phos 179. PT/INR not done. BUN 24, creatinine 0.9. Ammonia level 12. CT abdomen/pelvis showed moderate ascites,
cirrhotic morphology of the liver and splenomegaly. Patient underwent paracentesis today with removal of 4000cc ascitic fluid. PMNs noted (244); fluid culture still pending. She had already received empiric IV antibiotics prior to the paracentesis.
She currently denies abdominal pain, states she feels better post-paracentesis. No nausea, vomiting, or fevers although she does feels chills.
Past Medical History
Past Medical History: Other (non-alcoholic cirrhosis, insulin-dependent DM (on Mounjaro), HTN, hyperlipidemia, VENESSA, and obesity)
Past Surgical History: Orthopedic (left shoulder ORIF) and Other (hernia repair, Mohs, lumbar laminectomy)
Social History
Tobacco: Non-Smoker
Alcohol: None
Drug: None
Personal:
Living: With Family
Family History
Family History: Other (She denies a family history of liver disease or GI malignancies)
Allergies / Home Medications
Allergy/AdvReac Type Severity Reaction Status Date / Time
NKA - No Known Allergies Allergy nkda Uncoded 01/22/25 21:19
�Medication �Instructions �Recorded
hydrochlorothiazide 50 mg tablet 50 mg PO DAILY 11/15/18
insulin glargine 100 unit/mL 44 units SC DAILY 11/15/18
subcutaneous solution (Lantus
U-100 Insulin)
insulin lispro 100 unit/mL 2 units SC AC 11/15/18
subcutaneous pen (Humalog KwikPen
(U-100) Insulin)
sertraline 100 mg tablet (Zoloft) 200 mg PO DAILY@0700 11/15/18
sacubitril 49 mg-valsartan 51 mg 1 tab PO DAILY 12/20/22
tablet (Entresto)
tolterodine 4 mg capsule,extended 4 mg PO DAILY 12/20/22
release 24 hr
gabapentin 300 mg capsule 300 mg PO TIDPRN PRN nereve pains 04/22/24
levothyroxine 150 mcg tablet 150 mcg PO DAILY 04/22/24
(Synthroid)
metformin 500 mg tablet 1,000 mg PO BID 04/22/24
tirzepatide 5 mg/0.5 mL 5 mg SC QWEEK 04/22/24
subcutaneous pen injector
(Mounjaro)
Vitamin D2 1.25 mg QWEEK 01/23/25
atorvastatin 40 mg tablet 40 mg PO DAILY 01/23/25
carvedilol 3.125 mg tablet 3.125 mg PO BID 01/23/25
mirabegron 50 mg tablet,extended 50 mg PO DAILY 01/23/25
release 24 hr
Review of Systems
-
History Source: Patient
All other systems: A 12 pt ROS was Negative except as stated above in HPI
Vital Signs
Temp Pulse Resp BP Pulse Ox
98 F 84 18 129/62 98
01/23/25 15:34 01/23/25 10:50 01/23/25 15:34 01/23/25 10:50 01/23/25 15:34
Physical Exam
Exam
General: Well Developed, Well Nourished and No Apparent Distress
Respiratory: Clear
Cardiac: Regular Rhythm
GI: Soft, Non Tender, Normal Bowel Sounds and Distended
Musculoskeletal: Edema (+bilateral lower extremity 2+ pitting edema)
Skin: Warm and Dry
Neuro: AO x 3
Psych: Calm
Results
WBC 2.8 10^3/uL (4.8-10.8) L 01/23/25 06:12
Hgb 11.2 g/dL (12.0-16.0) L 01/23/25 06:12
Hct 32.8 % (37.0-47.0) L 01/23/25 06:12
MCV 84.3 fL (81.0-99.0) 01/23/25 06:12
Plt Count 58 10^3/uL (130-400) L 01/23/25 06:12
Absolute Neuts (auto) 2.3 10^3/uL (1.4-6.5) 01/22/25 19:18
Sodium 136 mmol/L (135-145) 01/23/25 06:12
Potassium 4.3 mmol/L (3.5-5.1) 01/23/25 06:12
Chloride 103 mmol/L (98-107) 01/23/25 06:12
Carbon Dioxide 24 mmol/L (22-30) 01/23/25 06:12
BUN 22 mg/dl (7-17) H 01/23/25 06:12
Creatinine 0.8 mg/dL (0.6-1.0) 01/23/25 06:12
Calcium 8.7 mg/dl (8.4-10.2) 01/23/25 06:12
Total Bilirubin 1.5 mg/dl (0.2-1.3) H 01/23/25 06:12
AST 30 U/L (14-36) 01/23/25 06:12
ALT 21 U/L (0-35) 01/23/25 06:12
Alkaline Phosphatase 140 U/L (38-126) H 01/23/25 06:12
Diagnostic Image Results:
CT Abdomen/Pelvis: 01/23/25
1. Moderate intraperitoneal ascites, simple fluid attenuation. No evidence of intraperitoneal hemorrhage.
2. Cirrhotic morphology of the liver.
3. Splenomegaly, suggestive of portal hypertension.
4. Mild coronary arterial calcification. Please correlate with symptoms of and risk factors for coronary artery disease, with further workup as clinically appropriate.
US Abdomen: 12/2023
Cirrhotic liver morphology. No discrete lesions. There is also evidence for portal hypertension with trace perihepatic ascites and splenomegaly. 8 mm cyst identified within the body of the pancreas.
Prior GI Procedures:
EGD: 2 years ago, per pt (Dr. Rodriguez @ [facility])
Colonoscopy: 2 years ago, per pt (Dr. Rodriguez @ [facility])
Assessment / Plan
-
74 year old female with of non-alcoholic cirrhosis, diagnosed years ago but patient is noncompliant with following with GI/Hepatology, admitted after falls with increasing abdominal distension and lower extremity edema. She denies alcohol use. Labs
showing pancytopenia with platelet count of 58. LFTs: total bilirubin 1.5, AST 35, ALT 26, alk phos 179. PT/INR not done. BUN 24, creatinine 0.9. Ammonia level 12. CT abdomen/pelvis showed moderate ascites, cirrhotic morphology of the liver and
splenomegaly. Patient underwent paracentesis today with removal of 4000cc ascitic fluid. PMNs noted (244); fluid culture still pending. She had already received empiric IV antibiotics prior to the paracentesis. She currently denies abdominal pain,
states she feels better post-paracentesis. No nausea, vomiting, or fevers although she does feels chills.
IMPRESSION / PLAN:
Cirrhosis, noncompliant - does not follow with GI/Hepatology
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
- will obtain PT/INR to calculate MELD score
- ammonia level normal (12) so this does not appear to be HE, although she has seemed more confused recently per family
- paracentesis today 01/23 with removal of 4000cc with cell count showing 244 PMNs, patient had received empiric IV ceftriaxone for possible underlying UTI, so concern for possible SBP as these may have actually been higher
- continue IV Ceftriaxone, fluid culture pending
- will need close outpatient follow-up with Hepatology with HCC screening q 6 months, EGD for variceal screening/surveillance
Pancytopenia
- platelet count 58
- had previous bone marrow biopsy (negative)
- continue to monitor labs
Other medical issues managed as per hospitalist team. GI will follow.
-
-
Thank you for consultation and allowing me to participate in the patient's care. Please call the applications chemist GI physician during the after hours with any questions or concerns.
--- NOTE | 2025-01-23 16:29 | CM ---
Met with patient to obtain information for assessment. Patient stated that she lives in a two story home with two steps to enter with her spouse. She described herself as independent with her ADLs, personal care, dressing and bathing. 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 She has no DME. She drives and can transport herself to her appointments and do the shopping. She has never had VN services.
Patient has a prescription plan and uses, [facility] in [place] for all of her medications.
Her PCP is, Radha Li.
OBS letter reviewed, signed and put on chart.
Plan: Case management will continue to follow and assist with discharge planning. Home no needs.
[2025-01-23 17:15] LABS: Glucose - Point of Care 344 mg/dl (70-99)
[2025-01-23 17:29] LABS: INR 1.23; PT 15.8 Sec (11.4-14.6)
[2025-01-23] MEDS: NOVOLOG FLEXPEN-MODERATE RESISTANCE 7 UNITS SC (17:34)
[2025-01-23 21:24] LABS: Glucose - Point of Care 335 mg/dl (70-99)
[2025-01-23] MEDS: DESENEX/MITRAZOL/ZEASORB 1 APPLIC TOPICAL (21:35)
[2025-01-23] MEDS: LANTUS 0.35 UNITS SC (21:36)
[2025-01-23] MEDS: XIFAXAN 550 MG PO (21:36)
[2025-01-24 04:43] VITALS: BP 100/48; BP 115/64; BP 92/66; PULSE 102; PULSE 95; PULSE 98
[2025-01-24] MEDS: STERILE WATER FOR INJECTION 20 ML IV (05:12)
[2025-01-24] MEDS: ROCEPHIN 2000 MG IV (05:12)
[2025-01-24] MEDS: SYNTHROID 150 MCG PO (05:13)
[2025-01-24 06:00] VITALS: BMI 35.4
[2025-01-24] MEDS: ZOLOFT 200 MG PO (06:10)
[2025-01-24 06:37] LABS: Hematocrit 33.3 % (37.0-47.0); Hemoglobin 11.5 g/dL (12.0-16.0); Mean Corp Hgb Conc. 34.5 g/dL (33.0-37.0); Mean Corpuscular Hgb 28.9 pg (27.0-31.0); Mean Corpuscular Volume 83.7 fL (81.0-99.0); Mean Platelet Volume 10.3 fL (7.4-10.4); Platelet Count 60 10^3/uL (130-400); Red Blood Cell Count 3.98 10^6/uL (4.20-5.40); Red Cell Dist. Width 15.1 % (11.5-14.5); White Blood Cell Count 2.7 10^3/uL (4.8-10.8)
[2025-01-24 07:12] LABS: ALT (SGPT) 18 U/L (0-35); AST (SGOT) 26 U/L (14-36); Albumin 2.7 g/dl (3.5-5.0); Alkaline Phosphatase 143 U/L (38-126); Blood Urea Nitrogen 17 mg/dl (7-17); Calcium 8.4 mg/dl (8.4-10.2); Carbon Dioxide 22 mmol/L (22-30); Chloride 104 mmol/L (98-107); Estimated Creatinine Clearance 70 ml/min; Glucose 341 mg/dl (70-99); Potassium 4.2 mmol/L (3.5-5.1); Sodium 136 mmol/L (135-145); Total Bilirubin 1.2 mg/dl (0.2-1.3); Total Protein 5.8 g/dl (6.3-8.2); eGFR > 60.00
[2025-01-24 07:20] VITALS: BP 108/61
[2025-01-24 08:16] LABS: Glucose - Point of Care 367 mg/dl (70-99)
[2025-01-24] MEDS: PROTONIX IV 40 MG IV (08:34)
[2025-01-24] MEDS: ENTRESTO 49 MG/51 MG 1 TAB PO ×2 (08:34→21:23)
[2025-01-24] MEDS: NEURONTIN 100 MG PO ×3 (08:34→21:23)
[2025-01-24] MEDS: LASIX 20 MG PO (08:34)
[2025-01-24] MEDS: NSS (PRESERVATIVE FREE) 10 ML IV (08:35)
[2025-01-24] MEDS: LIPITOR 40 MG PO (08:35)
[2025-01-24] MEDS: ALDACTONE 50 MG PO (08:35)
[2025-01-24] MEDS: DUPHALAC/CHRONULAC 20 GRAMS PO (08:35)
[2025-01-24] MEDS: NOVOLOG FLEXPEN-MODERATE RESISTANCE 9 UNITS SC (08:35)
[2025-01-24] MEDS: DESENEX/MITRAZOL/ZEASORB 1 APPLIC TOPICAL ×2 (09:04→21:23)
[2025-01-24] MEDS: XIFAXAN 550 MG PO ×2 (09:28→21:23)
--- NOTE | 2025-01-24 11:01 | W.PN.HOSP.TC ---
Today's Communication/Plan
-
Adjust insulin doses.
Assessment / Plan
Assessment / Plan
Physical Exam
General: Other (74y F in no acute distress.)
HEENT: Moist mucous membranes and PERRLA
Respiratory: Clear; No Wheezes, Rales or Rhonchi
Cardiac: S1/S2, Regular Rhythm (with ectopy) and Murmur (II/ LOVE)
GI: Other (Abdomen is distended with areas of firmness. No significant tenderness / rebound / guarding. Pos BS. )
Musculoskeletal: No Clubbing, No Cyanosis and Other (2+ pitting edema to the knees bilaterally. Generalized rubor. No skin breakdown.)
Neuro: AO x 3
Assessment/Plan
74y F with PMH significant for non-alcoholic cirrhosis, DM-II and obesity s/p gastric bypass who presented complaining of frequent falls. Patient reported that she fell down 4 stairs on 01/20/25. She did strike her head during that fall, but denied
any LOC. She denied any prodrome of chest pain, lightheadedness, dizziness, etc. Patient noted that she was unable to get up unassisted and remained on the floor for about 3 hours at that time. On the day before presentation, patient suffered
another fall in her bedroom - though she noted that her caught her and she suffered no injuries.
Family has reportedly noted that patient has been more confused than usual.
Patient complained of urinary frequency and incontinence.
She has also noted recent increased in abdominal girth and new LE swelling - which she states has occurred since her fall on Sunday.
She has diagnosis of cirrhosis - though she apparently has not seen her GI / Feeder Operator in several years.
No recent medication changes.
Frequent Falls
- Observe overnight for further evaluation and treatment.
- Generalized weakness / fatigue with multiple potential chronic and acute etiologies.
- No evidence of acute injury / trauma. CT head with complete opacification of the right frontal sinus and visualized portion of the right maxillary sinus
- CXR with streaky opacity within the right midlung zone, suggestive of subsegmental atelectasis or early pneumonia, per radiologist
- Ascites contributing? (please see below)
- PT / OT evaluations.
Liver Cirrhosis
Moderate intraperitoneal ascites on CT Imaging
- Poorly compliant with no follow-up in about 2 years.
- Not on chronic diuretic regimen, etc.
- CT A/P noted with moderate ascites
- 4200 cc of cloudy yellow ascitic fluid was taken out by IR on January 23, 2025
- Negative fluid culture. No abd pain. No SBP.
Splenomegaly, suggestive of portal hypertension on CT Imaging
DM-II, Uncontrolled
Peripheral Neuropathy
Will increase Lantus
Add pre- meal insulin
c/w ISS
- Update A1C 10.4
- Continue gabapentin for neuropathy (patient did say she is unsure of the dose of Gabapentin she is supposed to be on at home)
Pancytopenia
- Chronic and mostly unchanged (anemia has improved from prior).
- Has bone marrow biopsy in the past which was reportedly unremarkable.
- ? secondary to cirrhosis.
- Follow cell counts for any changes.
- Platelet count dropped (but still above 50) as of January 23, 2025, but this could be from hemodilution
Mild coronary arterial calcification on CT Imaging
- Outpatient follow-up
UTI
- Patient reports recent urinary symptoms including urgency and incontinence.
- UA c/w UTI, await full culture result.
- IV ceftriaxone for now
- Afebrile
TME - Acute / Chronic / Both
- Family noted recent intermittent confusion.
- ? due to chronic cirrhosis, acute UTI, etc.
- Ammonia level unremarkable.
She seems more alert and following commands.
- Was able to answer all questions / provide detailed history during my visit.
Hypothyroidism
- TSH 27.2
- Patient stated that she is unsure of her home levothyroxine dose
- Increase current T4 dose by 12.5 to 162.5 daily
Anxiety / Depression
- Stable. Continue current psychotropic med regimen.
Obesity due to excess calories
s/p Gastric Bypass
- Affects all aspects of care.
- Encourage healthy diet and activity as able with goal of weight loss.
DVT Prophylaxis
History of PE
- Not on chronic oral anticoagulation.
- Subcut heparin for prophylaxis. -- CHANGE TO LOVENOX starting tomorrow
Code Status: Full
Total time spent to see the patient, examine the patient, review data and lab result, discuss treatment plan with the patient, nursing staff around 55 minutes
Anticipated Discharge: > 48 hours
Subjective/Interval History
-
Date of Service: January 24, 2025
No chest pain
No sob
No abdominal pain
Objective Data
-
Labs:
Laboratory Results
01/24/25
05:53
WBC 2.7 L
Hgb 11.5 L
Hct 33.3 L
Plt Count 60 L
Sodium 136
Potassium 4.2
Chloride 104
Carbon Dioxide 22
BUN 17
Creatinine 0.8
Glucose 341 H
Calcium 8.4
Total Bilirubin 1.2
AST 26
ALT 18
Alkaline Phosphatase 143 H
Vital Signs:
Vital Signs
Temp Pulse Resp BP Pulse Ox
97.9 F 90 18 108/61 97
01/24/25 07:20 01/24/25 07:20 01/24/25 07:20 01/24/25 07:20 01/24/25 07:20
[2025-01-24 11:26] LABS: Glucose - Point of Care 313 mg/dl (70-99)
[2025-01-24] MEDS: NOVOLOG FLEXPEN-MODERATE RESISTANCE 7 UNITS SC (11:30)
[2025-01-24] MEDS: LANTUS 0.5 UNITS SC (13:10)
[2025-01-24 15:30] VITALS: BP 109/58; BP 78/61; BP 95/46; PULSE 87; PULSE 91; PULSE 92
[2025-01-24 16:22] LABS: Glucose - Point of Care 281 mg/dl (70-99)
[2025-01-24] MEDS: NOVOLOG FLEXPEN-MODERATE RESISTANCE 5 UNITS SC (17:27)
[2025-01-24] MEDS: NOVOLOG FLEXPEN 10 UNITS SC (17:27)
[2025-01-24] MEDS: LOVENOX 40 MG SC (17:28)
[2025-01-24 21:26] LABS: Glucose - Point of Care 191 mg/dl (70-99)
[2025-01-24 23:36] VITALS: BP 103/45
[2025-01-25 03:21] LABS: Glucose - Point of Care 188 mg/dl (70-99)
[2025-01-25 04:41] VITALS: BP 100/65; BP 117/69; BP 97/71; PULSE 103; PULSE 97; PULSE 98
[2025-01-25 04:44] VITALS: BMI 34.5
[2025-01-25] MEDS: ROCEPHIN 2000 MG IV (06:13)
[2025-01-25] MEDS: SYNTHROID 150 MCG PO (06:13)
[2025-01-25] MEDS: STERILE WATER FOR INJECTION 20 ML IV (06:13)
[2025-01-25] MEDS: ZOLOFT 200 MG PO (06:14)
[2025-01-25 06:56] LABS: ALT (SGPT) 17 U/L (0-35); AST (SGOT) 26 U/L (14-36); Albumin 2.9 g/dl (3.5-5.0); Alkaline Phosphatase 140 U/L (38-126); Blood Urea Nitrogen 20 mg/dl (7-17); Calcium 8.5 mg/dl (8.4-10.2); Carbon Dioxide 22 mmol/L (22-30); Chloride 105 mmol/L (98-107); Estimated Creatinine Clearance 55 ml/min; Glucose 182 mg/dl (70-99); Sodium 138 mmol/L (135-145); Total Bilirubin 1.2 mg/dl (0.2-1.3); eGFR 59.12
[2025-01-25 07:00] LABS: Hematocrit 34.4 % (37.0-47.0); Hemoglobin 11.8 g/dL (12.0-16.0); Mean Corp Hgb Conc. 34.3 g/dL (33.0-37.0); Mean Corpuscular Hgb 28.9 pg (27.0-31.0); Mean Corpuscular Volume 84.3 fL (81.0-99.0); Mean Platelet Volume 10.9 fL (7.4-10.4); Platelet Count 70 10^3/uL (130-400); Red Blood Cell Count 4.08 10^6/uL (4.20-5.40); Red Cell Dist. Width 15.2 % (11.5-14.5); White Blood Cell Count 3.5 10^3/uL (4.8-10.8)
[2025-01-25 07:59] VITALS: BP 93/57
[2025-01-25 08:04] LABS: Glucose - Point of Care 166 mg/dl (70-99)
[2025-01-25] MEDS: NEURONTIN 100 MG PO ×3 (08:06→21:52)
[2025-01-25] MEDS: DUPHALAC/CHRONULAC 20 GRAMS PO (08:06)
[2025-01-25] MEDS: LIPITOR 40 MG PO (08:06)
[2025-01-25] MEDS: PROTONIX IV 40 MG IV (08:06)
[2025-01-25] MEDS: NSS (PRESERVATIVE FREE) 10 ML IV (08:06)
[2025-01-25] MEDS: XIFAXAN 550 MG PO ×2 (08:07→21:52)
[2025-01-25] MEDS: DESENEX/MITRAZOL/ZEASORB 1 APPLIC TOPICAL ×2 (08:09→21:51)
[2025-01-25] MEDS: LASIX 20 MG PO (08:17)
[2025-01-25] MEDS: ENTRESTO 49 MG/51 MG 1 TAB PO (08:17)
[2025-01-25] MEDS: ALDACTONE 50 MG PO (08:17)
[2025-01-25 08:23] VITALS: BMI 34.4
--- NOTE | 2025-01-25 08:58 | W.PN.HOSP.TC ---
Today's Communication/Plan
-
DC IV Rocephin, c/w oral antibiotic for total of 7 days for UTI
repeat US of abdomen, might need repeat para
Assessment / Plan
Assessment / Plan
Physical Exam
General: Other (74y F in no acute distress.)
HEENT: Moist mucous membranes and PERRLA
Respiratory: Clear; No Wheezes, Rales or Rhonchi
Cardiac: S1/S2, Regular Rhythm (with ectopy) and Murmur (II/ LOVE)
GI: Other (Abdomen is distended with areas of firmness. No significant tenderness / rebound / guarding. Pos BS. )
Musculoskeletal: No Clubbing, No Cyanosis and Other (2+ pitting edema to the knees bilaterally. Generalized rubor. No skin breakdown.)
Neuro: AO x 3
Assessment/Plan
74y F with PMH significant for non-alcoholic cirrhosis, DM-II and obesity s/p gastric bypass who presented complaining of frequent falls. Patient reported that she fell down 4 stairs on 01/20/25. She did strike her head during that fall, but denied
any LOC. She denied any prodrome of chest pain, lightheadedness, dizziness, etc. Patient noted that she was unable to get up unassisted and remained on the floor for about 3 hours at that time. On the day before presentation, patient suffered
another fall in her bedroom - though she noted that her caught her and she suffered no injuries.
Family has reportedly noted that patient has been more confused than usual.
Patient complained of urinary frequency and incontinence.
She has also noted recent increased in abdominal girth and new LE swelling - which she states has occurred since her fall on Sunday.
She has diagnosis of cirrhosis - though she apparently has not seen her GI / Museum Assistant in several years.
No recent medication changes.
Frequent Falls
- Generalized weakness / fatigue with multiple potential chronic and acute etiologies.
- No evidence of acute injury / trauma. CT head with complete opacification of the right frontal sinus and visualized portion of the right maxillary sinus
- CXR with streaky opacity within the right midlung zone, suggestive of subsegmental atelectasis or early pneumonia, per radiologist
- PT / OT evaluations.
Liver Cirrhosis
Moderate intraperitoneal ascites on CT Imaging
c/w Aldactone & Lasix
Abdomen is distended, repeat US 01/26, might need another Para before dc.
- Poorly compliant with no follow-up in about 2 years.
- Not on chronic diuretic regimen, etc.
- CT A/P noted with moderate ascites
- 4200 cc of cloudy yellow ascitic fluid was taken out by IR on January 23, 2025
- Negative fluid culture. No abd pain. No SBP.
Splenomegaly, suggestive of portal hypertension on CT Imaging
DM-II, better controlled
Peripheral Neuropathy
Increased Lantus
Added pre- meal insulin
c/w ISS
- Update A1C 10.4
- Continue gabapentin for DM neuropathy
Pancytopenia
- Chronic and mostly unchanged
- Has bone marrow biopsy in the past which was reportedly unremarkable.
- secondary to cirrhosis.
- Platelet count dropped (but still above 50) as of January 23, 2025, but this could be from hemodilution
Mild coronary arterial calcification on CT Imaging
Nonischemic cardiomyopathy/ Moderate mitral regurgitation/ Mild AI,
c/w Entresto
No chest pain or SOB
- Outpatient follow-up
UTI
- Patient reports recent urinary symptoms including urgency and incontinence.
- UA c/w UTI, doss-sensitive E-Coli
- s/p IV ceftriaxone, change to oral Keflex.
- Afebrile
- No dysuria.
TME - Acute / Chronic / Both
- Family noted recent intermittent confusion. Now AAO to self and surrounings.
- Possible due to chronic cirrhosis.
- Ammonia level unremarkable.
She seems back to baseline, more alert and following commands.
- Was able to answer all questions / provide detailed history during my visit.
Hypothyroidism
- TSH 27.2
- Patient stated that she is unsure of her home levothyroxine dose
- Increase current T4 dose by 12.5 to 162.5 daily
Anxiety / Depression
- Stable. Continue current psychotropic med regimen.
Obesity due to excess calories
s/p Gastric Bypass
- Affects all aspects of care.
- Encourage healthy diet and activity as able with goal of weight loss.
DVT Prophylaxis
History of PE
- Not on chronic oral anticoagulation.
- Subcut heparin for prophylaxis. -- CHANGE TO LOVENOX starting tomorrow
Code Status: Full
Total time spent to see the patient, examine the patient, review data and lab result, discuss treatment plan with the patient, nursing staff around 55 minutes
Anticipated Discharge: 24 - 48 hours
Subjective/Interval History
-
Date of Service: January 25, 2025
No chest pain
No abd pain
Objective Data
-
Labs:
Laboratory Results
01/25/25
04:35
WBC 3.5 L
Hgb 11.8 L
Hct 34.4 L
Plt Count 70 L
Sodium 138
Potassium 4.0
Chloride 105
Carbon Dioxide 22
BUN 20 H
Creatinine 1.0
Glucose 182 H
Calcium 8.5
Total Bilirubin 1.2
AST 26
ALT 17
Alkaline Phosphatase 140 H
Vital Signs:
Vital Signs
Temp Pulse Resp BP Pulse Ox
98.9 F 97 18 93/57 96
01/25/25 07:59 01/25/25 07:59 01/25/25 07:59 01/25/25 07:59 01/25/25 07:59
I&O
01/24/25 01/25/25 01/26/25
06:59 06:59 06:59
Intake Total 620 / 620
Balance 620 / 620
[2025-01-25] MEDS: LANTUS 0.5 UNITS SC (09:21)
[2025-01-25] MEDS: NOVOLOG FLEXPEN-MODERATE RESISTANCE 1 UNITS SC ×3 (09:22→18:18)
[2025-01-25] MEDS: NOVOLOG FLEXPEN 10 UNITS SC ×3 (09:22→18:17)
[2025-01-25 11:41] VITALS: BP 88/43; BP 91/50; BP 91/53; PULSE 105; PULSE 65; PULSE 98
[2025-01-25 12:13] LABS: Glucose - Point of Care 169 mg/dl (70-99)
[2025-01-25 15:04] VITALS: BP 102/52
[2025-01-25 16:53] LABS: Glucose - Point of Care 165 mg/dl (70-99)
[2025-01-25] MEDS: LOVENOX 40 MG SC (18:15)
[2025-01-25 19:30] VITALS: BP 70/47; BP 94/45; PULSE 103; PULSE 91
[2025-01-25] MEDS: ENTRESTO 49 MG/51 MG PO (21:18)
[2025-01-25 21:34] LABS: Glucose - Point of Care 147 mg/dl (70-99)
[2025-01-25 23:52] VITALS: BP 129/60
[2025-01-26 06:00] VITALS: BMI 34.6
[2025-01-26] MEDS: ROCEPHIN 2000 MG IV (06:13)
[2025-01-26] MEDS: ZOLOFT 200 MG PO (06:13)
[2025-01-26] MEDS: SYNTHROID 150 MCG PO (06:13)
[2025-01-26] MEDS: STERILE WATER FOR INJECTION 20 ML IV (06:13)
[2025-01-26 07:30] LABS: Glucose - Point of Care 124 mg/dl (70-99)
[2025-01-26 07:35] VITALS: BP 135/63
[2025-01-26 08:09] LABS: Hematocrit 35.4 % (37.0-47.0); Mean Corp Hgb Conc. 33.9 g/dL (33.0-37.0); Mean Corpuscular Hgb 29.1 pg (27.0-31.0); Mean Corpuscular Volume 85.9 fL (81.0-99.0); Mean Platelet Volume 10.4 fL (7.4-10.4); Platelet Count 63 10^3/uL (130-400); Red Blood Cell Count 4.12 10^6/uL (4.20-5.40); Red Cell Dist. Width 15.2 % (11.5-14.5); White Blood Cell Count 2.9 10^3/uL (4.8-10.8)
[2025-01-26] MEDS: NOVOLOG FLEXPEN-MODERATE RESISTANCE SC (08:09)
[2025-01-26 08:10] LABS: ALT (SGPT) 17 U/L (0-35); AST (SGOT) 33 U/L (14-36); Albumin 2.8 g/dl (3.5-5.0); Alkaline Phosphatase 130 U/L (38-126); Blood Urea Nitrogen 24 mg/dl (7-17); Calcium 8.6 mg/dl (8.4-10.2); Carbon Dioxide 24 mmol/L (22-30); Chloride 109 mmol/L (98-107); Estimated Creatinine Clearance 55 ml/min; Glucose 126 mg/dl (70-99); Potassium 4.1 mmol/L (3.5-5.1); Sodium 139 mmol/L (135-145); Total Bilirubin 0.9 mg/dl (0.2-1.3); eGFR 59.12
[2025-01-26] MEDS: XIFAXAN 550 MG PO (08:14)
[2025-01-26] MEDS: LASIX 20 MG PO (08:14)
[2025-01-26] MEDS: DUPHALAC/CHRONULAC 20 GRAMS PO (08:14)
[2025-01-26] MEDS: ENTRESTO 49 MG/51 MG 1 TAB PO (08:14)
[2025-01-26] MEDS: NEURONTIN 100 MG PO ×2 (08:14→16:36)
[2025-01-26] MEDS: ALDACTONE 50 MG PO (08:15)
[2025-01-26] MEDS: LIPITOR 40 MG PO (08:15)
[2025-01-26] MEDS: DESENEX/MITRAZOL/ZEASORB 1 APPLIC TOPICAL (08:15)
[2025-01-26] MEDS: PROTONIX IV 40 MG IV (08:15)
[2025-01-26] MEDS: NSS (PRESERVATIVE FREE) 10 ML IV (08:15)
--- NOTE | 2025-01-26 08:17 | W.PN.HOSP.TC ---
Addendum entered and electronically signed by Raf Velásquez MD 01/26/25 17:38:
Per patient's nurse, patient's blood pressure just now was 100/53 mmHg standing, patient was able to ambulate around the unit slowly with no problems, and after ambulating, patient's blood pressure while standing was 148/66 mmHg. HR okay.
Original Note:
Today's Communication/Plan
-
Blood pressure low this afternoon -- nurse will recheck blood pressure, patient needs to ambulate to make sure safe for discharge
Assessment / Plan
Assessment / Plan
Physical Exam
General: Not in acute distress
HEENT: Moist mucous membranes
Respiratory: Clear to Auscultation Bilaterally
Cardiac: S1/S2, Regular Rhythm (with ectopy) and Murmur (II/ LOVE)
GI: Other (Abdomen is distended. No significant tenderness / rebound / guarding. Positive bowel sounds.)
Musculoskeletal: No Cyanosis and Other (2+ pitting edema to the knees bilaterally. Generalized rubor. No skin breakdown.)
Neuro: AAO x 3
Assessment/Plan
74y F with PMH significant for non-alcoholic cirrhosis, DM-II and obesity s/p gastric bypass who presented complaining of frequent falls. Patient reported that she fell down 4 stairs on 01/20/25. She did strike her head during that fall, but denied
any LOC. She denied any prodrome of chest pain, lightheadedness, dizziness, etc. Patient noted that she was unable to get up unassisted and remained on the floor for about 3 hours at that time. On the day before presentation, patient suffered
another fall in her bedroom - though she noted that her caught her and she suffered no injuries.
Family has reportedly noted that patient has been more confused than usual.
Patient complained of urinary frequency and incontinence.
She has also noted recent increased in abdominal girth and new LE swelling - which she states has occurred since her fall on Sunday.
She has diagnosis of cirrhosis - though she apparently has not seen her GI / Automation Controls Specialist in several years.
No recent medication changes.
Frequent Falls
- Generalized weakness / fatigue with multiple potential chronic and acute etiologies.
- No evidence of acute injury / trauma. CT head with complete opacification of the right frontal sinus and visualized portion of the right maxillary sinus
- CXR with streaky opacity within the right midlung zone, suggestive of subsegmental atelectasis or early pneumonia, per radiologist
- PT / OT evaluations.
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
Moderate intraperitoneal ascites on CT Imaging
c/w Aldactone & Lasix
Abdomen is distended, repeat US 01/26, might need another Para before dc.
- Poorly compliant with no follow-up in about 2 years.
- Not on chronic diuretic regimen, etc.
- CT A/P noted with moderate ascites
- 4200 cc of cloudy yellow ascitic fluid was taken out by IR on January 23, 2025
- Negative fluid culture. No abd pain. No SBP.
- Repeat abdominal ultrasound showed small amount of abdominal ascites
- Patient needs to follow-up with her already known GI/brim raiser, Dr. Rodriguez at [place]
- Patient needs to see Dr. Rodriguez within 4 weeks post discharge and monitor MELD labs 1 week post discharge to monitor electrolytes and kidney function
- Patient will need outpatient EGD, hepatoma screening every 6 months.
Ascites
- Diuretics started 50 mg of Aldactone and 20 mg of Lasix: which can be titrated up outpatient
- Follow 2 g sodium diet
- Daily weights
Hepatic encephalopathy
- Likely exacerbated by UTI
- Electrolytes are normal, kidney functions normal, no signs of GI bleeding
- Treat the UTI, continue newly started Xifaxan and low-dose Lactulose
Splenomegaly, suggestive of portal hypertension on CT Imaging
DM-II, better controlled
Peripheral Neuropathy
Continue Lantus and premeal Insulin
c/w ISS
- Update A1C 10.4
- Continue Gabapentin for DM neuropathy
Pancytopenia
- Chronic and mostly unchanged
- Has bone marrow biopsy in the past which was reportedly unremarkable.
- secondary to cirrhosis.
- Platelet count dropped (but still above 50) as of January 23, 2025, but this could be from hemodilution
Mild coronary arterial calcification on CT Imaging
Nonischemic cardiomyopathy/ Moderate mitral regurgitation/ Mild AI,
c/w Entresto
No chest pain or SOB
- Outpatient follow-up
UTI
- Patient reports recent urinary symptoms including urgency and incontinence.
- UA c/w UTI, doss-sensitive E-Coli
- s/p IV ceftriaxone, recently changed to oral Keflex.
- Afebrile
- No dysuria.
TME - Acute / Chronic / Both
- Family noted recent intermittent confusion. Now AAO to self and surrounings.
- Possible due to chronic cirrhosis.
- Ammonia level unremarkable.
She seems back to baseline, more alert and following commands.
- Was able to answer all questions / provide detailed history during my visit.
Tardive dyskinesia/tremors at baseline
Hypothyroidism
- TSH 27.2
- Patient stated that she is unsure of her home levothyroxine dose
- Increase current T4 dose by 12.5 to 162.5 daily
Anxiety / Depression
- Stable. Continue current psychotropic med regimen.
Obesity due to excess calories
s/p Gastric Bypass
- Affects all aspects of care.
- Encourage healthy diet and activity as able with goal of weight loss.
DVT Prophylaxis
History of PE
- Not on chronic oral anticoagulation.
- Lovenox subq
Code Status: Full
Anticipated Discharge: Within 24 hours
Subjective/Interval History
-
Date of Service: January 26, 2025
Patient was seen and examined. She denied any complaints.
Objective Data
-
Labs:
Laboratory Results
01/26/25
06:45
WBC 2.9 L
Hgb 12.0
Hct 35.4 L
Plt Count 63 L
Sodium 139
Potassium 4.1
Chloride 109 H
Carbon Dioxide 24
BUN 24 H
Creatinine 1.0
Glucose 126 H
Calcium 8.6
Total Bilirubin 0.9
AST 33
ALT 17
Alkaline Phosphatase 130 H
Vital Signs:
Vital Signs
Temp Pulse Resp BP Pulse Ox
98.6 F 90 18 135/63 96
01/25/25 23:52 01/26/25 08:15 01/25/25 23:52 01/26/25 08:15 01/25/25 23:52
I&O
01/25/25 01/26/25 01/27/25
06:59 06:59 06:59
Intake Total 620 / 620 480 / 480
Balance 620 / 620 480 / 480
[2025-01-26] MEDS: NOVOLOG FLEXPEN SC (08:41)
[2025-01-26] MEDS: LANTUS SC (08:41)
[2025-01-26] MEDS: NOVOLOG FLEXPEN 5 UNITS SC ×3 (09:01→16:35)
[2025-01-26] MEDS: LANTUS 0.25 UNITS SC (09:26)
[2025-01-26 11:11] VITALS: BP 105/59; BP 105/84; BP 93/51; PULSE 101; PULSE 89; PULSE 96
[2025-01-26 12:20] LABS: Glucose - Point of Care 193 mg/dl (70-99)
[2025-01-26] MEDS: NOVOLOG FLEXPEN-MODERATE RESISTANCE 1 UNITS SC (13:17)
[2025-01-26 15:18] VITALS: BP 96/52
--- NOTE | 2025-01-26 15:53 | CM ---
Per hospitalist, patient is stable for d/c today
Therapy rec home PT on 01/23, no updated recommendations at this time
Met w/ patient and daughter bedside, agreeable to d/c today. Patient shared she is agreeable to home PT and prefers [facility] referral placed in [facility] for review
IMM verbally reviewed, copy given to patient, copy in chart
[facility]

Plan: Home w/ [facility]
[2025-01-26 16:33] LABS: Glucose - Point of Care 233 mg/dl (70-99)
[2025-01-26] MEDS: NOVOLOG FLEXPEN-MODERATE RESISTANCE 3 UNITS SC (16:35)
[2025-01-26 17:30] VITALS: BP 100/53
--- NOTE | 2025-01-26 18:09 | W.DCSUMMARY ---
Discharge Summary
Discharge Data
Date of Admission: 01/23/25
Date of Discharge: 01/26/25
Total time spent discharging patient (in min): 41
-
Pending Results: Yes
Additional Pending Results:
Peritoneal Fluid Cytology/Pathology
Hospital Course
74 y/o female with past medical history of known cirrhosis secondary to Rodriguez, insulin-dependent uncontrolled diabetes with a A1c of over 10 and sleep apnea who came in with falls. CT imaging showed ascites, IR was then consult and patient had more
than 4 liters of fluid that was removed. It was negative for SBP, gastroenterology was consulted, and patient was started on diuretics. Patient was given antibiotics for urinary tract infection. Patient was doing well, and was able to ambulate
without any symptoms. She was stable for discharge.
Discharge Plan
-
Patient Disposition: Home with Home Care
Discharge Diagnosis/Procedures: Complete opacification of the right frontal sinus and visualized portion of the right maxillary sinus on CT Head
Frequent Falls
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
Moderate intraperitoneal ascites on CT Imaging
Ascites
Hepatic encephalopathy
Splenomegaly, suggestive of portal hypertension on CT Imaging
Type 2 Diabetes Mellitus
Peripheral Neuropathy
Pancytopenia
Mild coronary arterial calcification on CT Imaging
Non-ischemic cardiomyopathy/Moderate mitral regurgitation/Mild Aortic Insufficiency
E. coli Urinary Tract Infection
Toxic Metabolic Encephalopathy
Tardive dyskinesia/tremors at baseline
Hypothyroidism
Anxiety/Depression
Obesity due to excess calories
status post Gastric Bypass
History of Pulmonary Embolism?
Abdomen/Pelvis CT (as per radiologist's report):
'FINDINGS:
Lower Chest: Lung bases are clear, without pleural effusion or airspace consolidation. No significant pericardial effusion. Mild coronary arterial calcification.
Abdomen:
Peritoneum: No free air is seen within the peritoneal cavity.
There is moderate intraperitoneal ascites, simple fluid attenuation.
Retroperitoneum: No pathologic lymphadenopathy is seen within the retroperitoneum.
Vessels: The abdominal aorta is of normal caliber. The IVC is within normal limits.
Liver: Cirrhotic morphology of liver. No enhancing mass is seen within the liver.
No filling defects are seen within the opacified portal veins.
Gallbladder: There is no significant dilation of the gallbladder. No radiopaque gallstones are appreciated, and there is no significant pericholecystic inflammatory change.
Bile Ducts: No significant biliary ductal dilation.
Spleen: The spleen is enlarged, measuring 20 cm in diameter.
Pancreas: No pancreatic mass or adjacent inflammatory change.
Adrenals: No adrenal mass appreciated.
Kidneys/Ureters: No nephrolithiasis or hydronephrosis on either side. No aggressive renal mass appreciated. The ureters are nondilated .
Bowel: The stomach and small bowel are not significantly dilated, and no inflammatory change is appreciated.
Mild colonic diverticulosis is seen, most pronounced in the sigmoid, without associated inflammatory change to suggest diverticulitis .
Appendix: The appendix is not well seen, however no inflammatory changes are identified to suggest appendicitis.
Pelvis: Pelvic free fluid, likely related to diffuse ascites.
Streak artifact within the pelvis resulting from a right hip prosthetic.
Reproductive Organs: Not well evaluated due to streak artifact.
Bladder: No significant bladder wall thickening or adjacent fat stranding.
Abdominal Wall: No significant abdominal wall hernia formation. No abdominal wall mass appreciated.
Bones: No focal aggressive osseous lesions are seen. Mild degenerative change within the lumbar spine.
Paraspinal soft tissues: No significant paraspinal soft tissue stranding or large soft tissue mass.
IMPRESSION:
1. Moderate intraperitoneal ascites, simple fluid attenuation. No evidence of intraperitoneal hemorrhage.
2. Cirrhotic morphology of the liver.
3. Splenomegaly, suggestive of portal hypertension.
4. Mild coronary arterial calcification. Please correlate with symptoms of and risk factors for coronary artery disease, with further workup as clinically appropriate.'
Condition: Good
Diet: Low Sodium, 2 Gram Sodium, Diabetic, Carb Controlled and Restrict fluids to 64 oz
Activity: As tolerated
Driving Restrictions: No driving
Blood Work: Check CBC, CMP, Magnesium and Thyroid Function Tests labs in 3 to 4 days with primary care provider's office
Other Services: [facility]
Specialty Instructions: Weigh Daily- Call MD for wt gain/loss 3 lbs overnight/5 lbs in 1 week
Activity Restrictions/Additional Instructions:
IT IS EXTREMELY IMPORTANT THAT YOU FOLLOW-UP WITH YOUR PRIMARY CARE PROVIDER'S OFFICE IN 2 TO 3 DAYS TO REVIEW YOUR CURRENT MEDICATION LIST AND YOUR HOSPITAL DISCHARGE PAPERWORK, AND TO RECHECK YOUR LABWORK OUTLINED ABOVE
Repeat chest x-ray with your outpatient primary care provider in 2 to 3 weeks to assess for atelectasis or for any streaky opacity within the right midlung zone
You need to see wig stylist Dr. Rodriguez (at [place]) by February 23, 2025 and monitor MELD labs (talk to your primary care provider about this) by February 02, 2025 to monitor electrolytes and kidney function
You need outpatient EGD, hepatoma screening every 6 months, and you need outpatient surveillance for heptocellular carcinoma -- please speak with your wig stylist Dr. Rodriguez about this.
Referrals:
Radha Li CRNP [Family Provider] - in less than 1 week
Additional Discharge Medication Instructions: Cephalexin, Furosemide, Spironolactone, Lactulose and Xifaxan are all new medications.
Lantus Insulin reduced to 30 units daily (from 44 units daily).
Levothyroxine increased to 162.5 mg daily.
Carvedilol, Metformin, Mounjaro, and Tolterodine are on hold until outpatient follow-up.
Hydrochlorothiazide and Mirabegron stopped.
Prescriptions:
New
spironolactone 50 mg Tablet
50 mg PO DAILY Qty: 30 1RF
lactulose 10 gram/15 mL Solution
20 g PO DAILY Qty: 1200 1RF
furosemide 20 mg Tablet
20 mg PO DAILY Qty: 30 1RF
cephalexin 500 mg tablet
500 mg PO Q12H 4 Days Qty: 8 0RF
Xifaxan 550 mg Tablet
550 mg PO BID Qty: 60 1RF
Continued
sertraline [Zoloft] 100 MG tablet
200 mg PO DAILY@0700
insulin lispro [Humalog KwikPen Insulin] 100 UNIT/ML insulin pen
2 units SC AC
Entresto 49-51 mg Tablet
1 tab PO DAILY
gabapentin 300 mg Capsule
300 mg PO TIDPRN PRN (Reason: nereve pains)
atorvastatin 40 mg Tablet
40 mg PO DAILY
Vitamin D2
1.25 mg QWEEK
Changed
insulin glargine [Lantus U-100 Insulin] 100 UNIT/ML solution
30 unit SC DAILY Qty: 0 0RF
levothyroxine [Synthroid] 150 mcg Tablet
162.5 mcg PO DAILY Qty: 30 1RF
Held
tolterodine 4 mg Capsule,Extended Release 24hr
4 mg PO DAILY
Hold Instructions: Resume on 02/23/25. Discuss with your outpatient primary care provider if and when you should resume this medication.
Mounjaro 5 mg/0.5 mL Pen Injector
5 mg SC QWEEK
Hold Instructions: Resume on 02/16/25. Discuss with your primary care provider if and when you should resume this medication.
Rx Instructions:
metformin 500 MG tablet
1,000 mg PO BID
Hold Instructions: Resume on 02/16/25. Discuss with your primary care provider when you should resume this medication.
Rx Instructions:
HOLD post cath- OK to resume on Sunday, 11/17 in AM
carvedilol 3.125 mg Tablet
3.125 mg PO BID
Hold Instructions: Resume on 02/16/25. Ask your primary care provider if and when you should resume this medication.
Discontinued
hydrochlorothiazide 50 MG tablet
50 mg PO DAILY
mirabegron 50 mg Tablet Extended Release 24 Hr
50 mg PO DAILY
Discharge Orders:
Discharge Patient (As Directed); Ordered 01/26/25
Ordered By: Raf Velásquez
Discharge Date and Time
Discharge Date/Time: 01/26/25 18:59
Print Language: LIBYAN
== END 2025-01-26 18:59 | disposition home health service (06) | DRG 433 ==
LOC: 4 EAST ACU 08:32
PROVIDERS: Emergency Medicine; Internal Medicine; Nurse Practitioner; Physician Assistant; Radiology Diagnostic Radiology; ADMITTING PHYSICIAN Hospitalist; ATTENDING PHYSICIAN Hospitalist; CONSULT PHYSICIAN Internal Medicine; EMERGENCY PHYSICIAN Emergency Medicine; FAMILY PHYSICIAN Nurse Practitioner Adult Health
PROC: 0W9G3ZZ Drainage of Peritoneal Cavity, Percutaneous Approach (ICD-10-PCS; 2025-01-23)
DX: K74.60 Unspecified cirrhosis of liver (principal); D61.818 Other pancytopenia; K76.6 Portal hypertension; N39.0 Urinary tract infection, site not specified; K75.81 Nonalcoholic steatohepatitis (NASH); E11.40 Type 2 diabetes mellitus with diabetic neuropathy, unspecified; G47.30 Sleep apnea, unspecified; B96.20 Unspecified Escherichia coli [E. coli] as the cause of diseases classified elsewhere; E66.09 Other obesity due to excess calories; E03.9 Hypothyroidism, unspecified; Z68.34 Body mass index [BMI] 34.0-34.9, adult; Z98.84 Bariatric surgery status; Z91.199 Patient's noncompliance with other medical treatment and regimen due to unspecified reason; Z79.4 Long term (current) use of insulin
CPT/HCPCS: 88305; 49083; 70450; 71046; 74177; 76705; 80048; 80053; 80076; 81003; 81015; 82042; 82140; 82150; 82962; 83036; 83615; 83880; 84157; 84439; 84443; 84484; 85025; 85027; 85610; 87015; 87070; 87077; 87086; 87186; 87205; 88112; 89051; 93005; 93970; 96360; 97162; 99285; Q9967

== ENCOUNTER 2025-04-27 23:29 | Inpatient (IN) | payer MEDICARE, SELFPAY ==
[2025-04-27] VITALS (8 sets, daily range): BP systolic 94–122; BP diastolic 45–57; PULSE 70; BMI 36.4
[2025-04-27 15:49] LABS: Hematocrit 35.2 % (37.0-47.0); Hemoglobin 11.1 g/dL (12.0-16.0); Mean Corp Hgb Conc. 31.5 g/dL (33.0-37.0); Mean Corpuscular Volume 89.1 fL (81.0-99.0); Nucleated Red Blood Cells % 0 %; Platelet Count 63 10^3/uL (130-400); Red Cell Dist. Width 15.4 % (11.5-14.5)
[2025-04-27 15:56] LABS: ALT (SGPT) 28 U/L (0-35); AST (SGOT) 40 U/L (14-36); Albumin 3.0 g/dl (3.5-5.0); Alkaline Phosphatase 156 U/L (38-126); Blood Urea Nitrogen 58 mg/dl (7-17); Calcium 8.8 mg/dl (8.4-10.2); Carbon Dioxide 20 mmol/L (22-30); Chloride 113 mmol/L (98-107); Glucose 183 mg/dl (70-99); Potassium 5.2 mmol/L (3.5-5.1); Sodium 140 mmol/L (135-145); Total Protein 6.0 g/dl (6.3-8.2); eGFR 39.48
--- NOTE | 2025-04-27 19:09 | ED.GENMED ---
History of Present Illness
<Juliette Talbert PA-C - Last Filed: 04/28/25 01:36>
General
Chief Complaint: Blood Pressure Problem
Source: patient
Exam Limitations: none
Time Seen by Provider: 04/27/25 18:40
Nursing documentation reviewed up to this point in time: agreed with
History of Present Illness
History of Present Illness:
Patient is a 74-year-old female with hypertension, hyperlipidemia, liver cirrhosis, insulin-dependent diabetes who presents to the emergency department for evaluation of low blood pressure at home. Patient states that her visiting nurse was at the
house today where her blood pressure was found to be low and she was referred to the emergency department. Patient and her daughter do state that she somewhat chronically deals with intermittent low blood pressure however recent logs have shown BPs
in 80s/50s in the middle of the day.
Patient does state that she feels somewhat weak and lightheaded. Her daughter thinks she may be more confused recently.
Patient denies any fever or chills. No focal weakness. No urinary symptoms. She denies any nausea, vomiting, or diarrhea.
Patient does have therapeutic paracenteses per once weekly secondary to abdominal ascites from liver cirrhosis. Her last paracentesis was last . She is currently on a fluid restriction.
Patient was recently discharged from a rehab facility.
Past History
<Juliette Talbert PA-C - Last Filed: 04/28/25 01:36>
Past History
ED Past Medical History: HTN, IDDM, Other (Cirrhosis, pulmonary embolism ) and Other (Diabetes, nonalcoholic cirrhosis, hypothyroidism, hypertension )
ED Past Surgical History: Orthopedic and Other
Social History
Tobacco: Non-smoker
Alcohol: None
Drug: None
Personal:
Living: with family
Family History
Family History: Other (stroke, CHF, )
Review of Systems
<Juliette Talbert PA-C - Last Filed: 04/28/25 01:36>
Review of Systems
Allergies reviewed?: Yes
All Other Systems: ROS reviewed and negative except as documented in HPI and ROS
Phy Exam
<Juliette Talbert PA-C - Last Filed: 04/28/25 01:36>
Physical Exam
Physical Exam:
Vitals: Patient's vital signs are stable. Afebrile
General: Patient is chronically ill-appearing, in no apparent distress
Skin: Warm and dry, no rashes or lesions
Head: Normocephalic, atraumatic
Eyes: Sclera nonicteric. EOMs intact. No nystagmus.
Throat: Protecting airway
Neck: Normal ROM, no cervical spine tenderness, no meningismus
Cardiac: Regular rate and rhythm, no murmurs.
Pulm: Normal respiratory effort, no wheezes, rales, rhonchi heard on exam
Abdomen: Mild distention. Soft and nontender. No focal tenderness
Extremities: No evidence of cyanosis or edema. 2+ palpable DP pulses bilaterally
Neuro: AAOx3. No focal deficits
Psychiatric: Normal affect.
Course
<Juliette Talbert PA-C - Last Filed: 04/28/25 01:36>
Orders/Labs/Results
Orders:
Orders
04/27/25 14:51
Electrocardiogram (*1) Urgent
Reason for Study: Vertigo / Dizzy
EKG- Treatment ONCE
04/27/25 15:07
Complete Blood Count/With Diff Urgent
Comprehensive Metabolic Panel Urgent
04/27/25 19:00
CT Head W/o Iv Contrast Urgent
Comment:
Reason For Exam: AMS
Orthostatic VS- Treatment ONCE
0.9% Sodium Chloride 500 ml [Nss] 500 ml IV BOLUS
04/27/25 21:03
Ammonia Urgent
Urinalysis Reflex To Culture Urgent
Date Specimen was Collected: 04/27/25
Time Specimen was Collected: 20:59
Urine Microscopic Reflex Cult Urgent
Urine Culture Urgent
IFEANYI Source: U
Specimen Description:
Date Specimen was Collected: 04/27/25
Time Specimen was Collected: 20:59
04/27/25 21:36
Ondansetron Injectable [Zofran] 4 mg IV NOW STA
04/27/25 22:59
Admit/Transfer Patient As Directed
Co-Sign Provider:
Level of Care: Inpatient admission
Assign to:: Medical/Surgical
Physician / Group: Analy
Diagnosis: BRADEN
Reason for Hospitalization: BRADEN
Expected length of stay greater than two midnights?: Yes
ELOS- Estimated Length of Stay in days: 2
I certify the patient meets the requirements for IP care: Yes
04/27/25 23:00
PRN Pain Medication Management As Directed
May give lesser potent ordered pain med per pt: Yes
preference::
Protocol:: Medication orders for pain may be administered in a
manner that supports deferring to patient preference
when the pt is:
- Requesting an ordered lesser potent pain medication.
Least to most potent pain medications are defined
as: acetaminophen < NSAID < tramadol < opioids
(morphine, oxycodone, hydromorphone).
- Requesting a lesser dose of the same medication IF
ORDERED.
- Requesting a less intrusive route of administration
if both routes are prescribed by the provider (PO <
IV).
04/27/25 23:02
Code Status As Directed
Resuscitation Status: Full Code
04/28/25 01:07
Acetaminophen [Tylenol] 650 mg PO Q4HPRN PRN
Bisacodyl [Dulcolax] 10 mg RECTAL [id number] PRN
Gabapentin [Neurontin] 300 mg PO TIDPRN PRN nereve pains
Heparin 5,000 units SC Q8
Ondansetron Injectable [Zofran] 4 mg IV Q6HPRN PRN
04/28/25 01:07
Echo 2D MMode Color/Doppler Routine
Reason for Study: CHF, low BP, evaluate EF
Consult Notification Routine
Specialty to Notify: Nephrology
NEPHROLOGY CONSULT Routine
Consulting Provider: Keila Munoz
Was physician already notified: No
Reason for consult: BRADEN
Urine Creatinine Routine
Urine Sodium Routine
Activity As Directed
Activity Level: With Assistance
Bedside Glucose Monitoring As Directed
Frequency: AC&HS
Intake/ Output As Directed
Frequency: Per unit guidelines
Orthostatic Vital Signs As Directed
Orthostatic VS Frequency: Daily
Vital Signs As Directed
Frequency: Per unit guidelines
Weight As Directed
Frequency: Daily
Pulse Ox/spot Check [RESP] Routine
Quantity: 1
DX Deep Vein Thrombosis Video Routine
04/28/25 Breakfast
1800 calorie (15 carb) Diabetic
At Your Request: Full Participation
Basic Metabolic Panel IN AM
Complete Blood Count/No Diff IN AM
Magnesium IN AM
TSH IN AM
04/28/25 07:00
Sertraline HCl [Zoloft] 200 mg PO DAILY@0700
04/28/25 07:30
Insulin Aspart Corrective Low [Novolog Flexpen-Low Resistance] See Protocol SC AC
04/28/25 08:00
Atorvastatin [Lipitor] 40 mg PO DAILY
Carvedilol [Coreg] 3.125 mg PO BID
Insulin Glargine Lantus [Lantus] 20 units Subcutaneous Insulin Syringe [Syringe-Insulin] 0 unit SC DAILY
Lactulose [Duphalac/Chronulac] 20 grams PO DAILY
Levothyroxine [Synthroid] 162.5 mcg PO DAILY
METFORMIN HCl [Glucophage] 1,000 mg PO BID
Rifaximin [Xifaxan] 550 mg PO BID
Sacubitril 49/Valsartan 51 [Entresto 49 mg/51 mg] 1 tab PO DAILY
Tolterodine Extended Release [Detrol LA] 4 mg PO DAILY
Abnormal Lab Results
04/27/25 04/27/25
15:07 21:03
WBC 3.0 L 10^3/uL
(4.8-10.8)
RBC 3.95 L 10^6/uL
(4.20-5.40)
Hgb 11.1 L g/dL
(12.0-16.0)
Hct 35.2 L %
(37.0-47.0)
MCHC 31.5 L g/dL
(33.0-37.0)
RDW 15.4 H %
(11.5-14.5)
Plt Count 63 L 10^3/uL
(130-400)
Absolute Lymphs (auto) 0.9 L 10^3/uL
(1.2-3.4)
Monocytes % 9.9 H %
(1.7-9.3)
Potassium 5.2 H mmol/L
(3.5-5.1)
Chloride 113 H mmol/L
(98-107)
Carbon Dioxide 20 L mmol/L
(22-30)
BUN 58 H mg/dl
(7-17)
Creatinine 1.4 H mg/dL
(0.6-1.0)
Glucose 183 H mg/dl
(70-99)
AST 40 H U/L
(14-36)
Alkaline Phosphatase 156 H U/L
(38-126)
Total Protein 6.0 L g/dl
(6.3-8.2)
Albumin 3.0 L g/dl
(3.5-5.0)
Leukocyte Esterase Rfl 1+ A
(Negative)
Urine Bacteria (Reflex) Many A
(Negative)
04/27/25 15:07
04/27/25 15:07
Vital Signs
Initial and Last Documented VS:
Initial Vital Signs
Temp Pulse Resp BP Pulse Ox
98.4 F 62 16 115/46 99
04/27/25 14:49 04/27/25 14:49 04/27/25 14:49 04/27/25 14:49 04/27/25 14:49
Last Documented Vital Signs
Temp Pulse Resp BP Pulse Ox
98.0 F 72 18 91/46 98
04/28/25 00:50 04/28/25 00:50 04/28/25 00:50 04/28/25 00:50 04/28/25 00:50
<Susanna Cast MD - Last Filed: 04/27/25 22:17>
Orders/Labs/Results
Orders:
Orders
04/27/25 14:51
Electrocardiogram (*1) Urgent
Reason for Study: Vertigo / Dizzy
EKG- Treatment ONCE
04/27/25 15:07
Complete Blood Count/With Diff Urgent
Comprehensive Metabolic Panel Urgent
04/27/25 19:00
CT Head W/o Iv Contrast Urgent
Comment:
Reason For Exam: AMS
Orthostatic VS- Treatment ONCE
0.9% Sodium Chloride 500 ml [Nss] 500 ml IV BOLUS
04/27/25 21:03
Ammonia Urgent
Urinalysis Reflex To Culture Urgent
Date Specimen was Collected: 04/27/25
Time Specimen was Collected: 20:59
Urine Microscopic Reflex Cult Urgent
Urine Culture Urgent
IFEANYI Source: U
Specimen Description:
Date Specimen was Collected: 04/27/25
Time Specimen was Collected: 20:59
04/27/25 21:36
Ondansetron Injectable [Zofran] 4 mg IV NOW STA
04/27/25 22:59
Admit/Transfer Patient As Directed
Co-Sign Provider:
Level of Care: Inpatient admission
Assign to:: Medical/Surgical
Physician / Group: Analy
Diagnosis: BRADEN
Reason for Hospitalization: BRADEN
Expected length of stay greater than two midnights?: Yes
ELOS- Estimated Length of Stay in days: 2
I certify the patient meets the requirements for IP care: Yes
04/27/25 23:00
PRN Pain Medication Management As Directed
May give lesser potent ordered pain med per pt: Yes
preference::
Protocol:: Medication orders for pain may be administered in a
manner that supports deferring to patient preference
when the pt is:
- Requesting an ordered lesser potent pain medication.
Least to most potent pain medications are defined
as: acetaminophen < NSAID < tramadol < opioids
(morphine, oxycodone, hydromorphone).
- Requesting a lesser dose of the same medication IF
ORDERED.
- Requesting a less intrusive route of administration
if both routes are prescribed by the provider (PO <
IV).
04/27/25 23:02
Code Status As Directed
Resuscitation Status: Full Code
04/28/25 01:07
Acetaminophen [Tylenol] 650 mg PO Q4HPRN PRN
Bisacodyl [Dulcolax] 10 mg RECTAL [id number] PRN
Gabapentin [Neurontin] 300 mg PO TIDPRN PRN nereve pains
Heparin 5,000 units SC Q8
Ondansetron Injectable [Zofran] 4 mg IV Q6HPRN PRN
04/28/25 01:07
Echo 2D MMode Color/Doppler Routine
Reason for Study: CHF, low BP, evaluate EF
Consult Notification Routine
Specialty to Notify: Nephrology
NEPHROLOGY CONSULT Routine
Consulting Provider: Keila Munoz
Was physician already notified: No
Reason for consult: BRADEN
Urine Creatinine Routine
Urine Sodium Routine
Activity As Directed
Activity Level: With Assistance
Bedside Glucose Monitoring As Directed
Frequency: AC&HS
Intake/ Output As Directed
Frequency: Per unit guidelines
Orthostatic Vital Signs As Directed
Orthostatic VS Frequency: Daily
Vital Signs As Directed
Frequency: Per unit guidelines
Weight As Directed
Frequency: Daily
Pulse Ox/spot Check [RESP] Routine
Quantity: 1
DX Deep Vein Thrombosis Video Routine
04/28/25 Breakfast
1800 calorie (15 carb) Diabetic
At Your Request: Full Participation
Basic Metabolic Panel IN AM
Complete Blood Count/No Diff IN AM
Magnesium IN AM
TSH IN AM
04/28/25 07:00
Sertraline HCl [Zoloft] 200 mg PO DAILY@0700
04/28/25 07:30
Insulin Aspart Corrective Low [Novolog Flexpen-Low Resistance] See Protocol SC AC
04/28/25 08:00
Atorvastatin [Lipitor] 40 mg PO DAILY
Carvedilol [Coreg] 3.125 mg PO BID
Insulin Glargine Lantus [Lantus] 20 units Subcutaneous Insulin Syringe [Syringe-Insulin] 0 unit SC DAILY
Lactulose [Duphalac/Chronulac] 20 grams PO DAILY
Levothyroxine [Synthroid] 162.5 mcg PO DAILY
METFORMIN HCl [Glucophage] 1,000 mg PO BID
Rifaximin [Xifaxan] 550 mg PO BID
Sacubitril 49/Valsartan 51 [Entresto 49 mg/51 mg] 1 tab PO DAILY
Tolterodine Extended Release [Detrol LA] 4 mg PO DAILY
Abnormal Lab Results
04/27/25 04/27/25
15:07 21:03
WBC 3.0 L 10^3/uL
(4.8-10.8)
RBC 3.95 L 10^6/uL
(4.20-5.40)
Hgb 11.1 L g/dL
(12.0-16.0)
Hct 35.2 L %
(37.0-47.0)
MCHC 31.5 L g/dL
(33.0-37.0)
RDW 15.4 H %
(11.5-14.5)
Plt Count 63 L 10^3/uL
(130-400)
Absolute Lymphs (auto) 0.9 L 10^3/uL
(1.2-3.4)
Monocytes % 9.9 H %
(1.7-9.3)
Potassium 5.2 H mmol/L
(3.5-5.1)
Chloride 113 H mmol/L
(98-107)
Carbon Dioxide 20 L mmol/L
(22-30)
BUN 58 H mg/dl
(7-17)
Creatinine 1.4 H mg/dL
(0.6-1.0)
Glucose 183 H mg/dl
(70-99)
AST 40 H U/L
(14-36)
Alkaline Phosphatase 156 H U/L
(38-126)
Total Protein 6.0 L g/dl
(6.3-8.2)
Albumin 3.0 L g/dl
(3.5-5.0)
Leukocyte Esterase Rfl 1+ A
(Negative)
Urine Bacteria (Reflex) Many A
(Negative)
04/27/25 15:07
04/27/25 15:07
Vital Signs
Initial and Last Documented VS:
Initial Vital Signs
Temp Pulse Resp BP Pulse Ox
98.4 F 62 16 115/46 99
04/27/25 14:49 04/27/25 14:49 04/27/25 14:49 04/27/25 14:49 04/27/25 14:49
Last Documented Vital Signs
Temp Pulse Resp BP Pulse Ox
98.0 F 72 18 91/46 98
04/28/25 00:50 04/28/25 00:50 04/28/25 00:50 04/28/25 00:50 04/28/25 00:50
<Juliette Talbert PA-C - Last Filed: 04/28/25 01:36>
MDM/Problems Addressed
Differential Diagnosis Includes:
Not limited to: Acute dehydration, orthostatic hypotension, BRADEN, medication side effect, sepsis, etc.
MDM/Problems Addressed:
74-year-old female with history as documented presenting with hypotension at home and weakness over the past few days. No fever, chills, abdominal pain, chest pain, or shortness of breath. She is on a fluid restriction. BP soft on arrival,
otherwise vital signs stable. Physical exam as above. Patient chronically ill-appearing however in no apparent distress. Cardio/pulmonary assessment unremarkable. Abdomen mildly distended although apparently baseline w/ ascites. No focal
neurologic deficits on exam.
Labs were sent prior to my evaluation significant for a pancytopenia secondary to liver cirrhosis however appears stable. Chemistry reveals acute renal insufficiency possibly prerenal in nature secondary to dehydration with creatinine 1.4 and BUN
of 58. Potassium mildly elevated at 5.2. Given known cirrhosis and history of altered mental status�will check ammonia level. Will obtain CT head. Unable to obtain orthostatic vital signs given weakness. Lab values consistent with
dehydration�will give very small bolus of IV fluids in ED given known fluid restriction.
Update: Ammonia level normal. Head CT without acute findings. Urine does not appear infected. BP did respond temporarily to IV fluids however remains soft. Suspect hypotension /renal insufficiency likely multifactorial given dehydration, etc.
possibly also medication induced with multiple antihypertensives on board. Ultimately does feel patient should be admitted overnight for continued observation and possibly nephrology consult in the morning for medication adjustments as needed.
Patient excepted to hospitalist service in stable condition. Patient and patient's family comfortable with plan
Chronic conditions affecting care:
Hypertension, liver cirrhosis, insulin-dependent diabetes
Acute Exacerbation and/or Progression of Chronic Illness:
Acute hyperglycemia
<Juliette Talbert PA-C - Last Filed: 04/28/25 01:36>
*Radiology
Radiology exam reviewed: radiology read reviewed
*Pulse Oximetry
SaO2: 100
Oxygen Mode of Delivery: Room air
Patient hypoxic: no
*EKG
Interpreted by ED Provider?: Yes
EKG Intrepretation Date: 04/27/25
Interpretation: abnormal
Comparison EKG: changes noted
Heart Rate: 63
Rate: normal
Rhythm: sinus and PAC's
Benedict: left axis deviation
Interval: normal interval
QRS Pattern: low voltage
Ischemia: non-specific ST changes
*Book Or Script Editor Interpretation
Rate: normal
Interpretation: normal
Heart Rate: 80
Rhythm: sinus
*Critical Care Note
Total Time (30-74mins, 75-104mins- exclusive of procedures): Not Applicable
<Juliette Talbert PA-C - Last Filed: 04/28/25 01:36>
Patient Management
Discussion with other providers: Hospitalist
ED Attending Note
<Juliette Talbert PA-C - Last Filed: 04/28/25 01:36>
-
Portions of this chart may have been created with voice recognition software.� Occasional wrong word or��sound alike� substitutions may have occurred due to the inherent limitations of voice recognition software.
<Susanna Cast MD - Last Filed: 04/27/25 22:17>
ED Attending Note
Patient seen and examined by attending physician: Yes
I performed the substantive portion of visit, reviewed & personally made and approve the management plan that is documented in note by myself or DANICA.: Yes
ED Attending Note:
74-year-old female was sent to the emergency department because her visiting nurse noted patient was hypotensive. Patient has been reporting dizziness described as lightheadedness for the past few days. She denies chest pain, shortness of breath,
abdominal pain, nausea, vomiting. Here in the ER, patient noted to have soft BP, temporarily responded to IV fluids. Patient is on fluid restriction and also taking spironolactone due to her history of ANDERSON. Noted to have renal insufficiency
here. Suspect tenuous fluid balance contributing to her hypotension. Recommend overnight observation, consideration for nephrology consult in the morning regarding her renal insufficiency.
Discharge Plan
Departure
Patient Disposition: Admit
Date of Disposition: 04/27/25
Time of Disposition: 22:24
Presentation/result/management discussed w/ accepting MD/DO: Hospitalist
Discharge Problem:
Acute renal insufficiency, Hypotension
Interventions
Interventions:
*Risk Screen - Suicide Last Done: 04/27/25 19:21
*General Assessment Last Done: 04/27/25 19:21
*Neglect/Abuse Screening Last Done: 04/27/25 19:21
*ED- Fall Risk Assessment Last Done: 04/27/25 19:21
*ED COVID-19 Vaccine History Last Done: 04/27/25 19:21
*Nursing Disposition Last Done: 04/28/25 00:39
ED- Neurological Assessment Last Done: 04/27/25 19:30
Discharge Date and Time
Discharge Date/Time: 04/28/25 00:39
[2025-04-27] MEDS: NSS 500 IV (19:19)
[2025-04-27 21:11] LABS: Urine Character Clear (Clear)
[2025-04-27 21:17] LABS: Urine Squamous Cell >30 /LPF (Few)
[2025-04-27 21:18] LABS: Urine Red Blood Cell 0-2 /HPF (0-2)
[2025-04-27 21:26] LABS: Ammonia 18 umol/L (9-30)
--- NOTE | 2025-04-27 22:33 | HPS.HSE ---
Family Physician
-
Family Physician: Radha Mohr PA-C
Chief Complaint
-
Low BP
History of Present Illness
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
have low blood pressures at home.
Patient reports that she has had about 1 week history of feeling dizzy especially while standing. She reported that daughter has been measuring her blood pressure regularly and measure the blood pressure it was low as 80 systolic today. The made a
call to a physician who recommended that she come to the emergency department. Patient reported that she gets paracentesis about once a week and she last had a paracentesis on . She reported that abdominal girth is about the same as usual.
Denies any abdominal pain. She denies having any nausea or vomiting. She denies any diarrhea. Denies any melena or hematochezia. Patient denies having any dysuria. She denies any hematuria. She denies any flank pain fevers or chills.
Patient reports that has been no changes in her medications. She is not on Entresto, carvedilol, spironolactone and furosemide.
In the emergency department blood pressure has been at the low of 108/45, pulse rates have been in the 70s she has been afebrile with temp of 98 and she been satting 98% on room air. ECG is unchanged from prior with sinus rhythm at a rate of 63.
CT of the head was unremarkable. UA is contaminated. Otherwise CBC shows a white count of 3 but otherwise unchanged from prior with hemoglobin of 11 and a platelet of 63. Electrolytes were stable with a potassium of 5.2 chloride of 113 and a
bicarb of 20. BUN and creatinine has risen to 58 and 1.4 from 24 and 1.0 respectively. Glucose was normal. LFTs were normal.
Medical History
Past Medical History
Past Medical History: Reports Other
Additional Past Medical History:
Non-Alcoholic Cirrhosis
Hypothyroidism
DM-II with Neuropathy and Retinopathy
Obesity
Pulmonary Embolism
Spinal Stenosis
Non-Melanoma Skin Cancer
GERD
VENESSA
ADHD
Pancytopenia
CVA / TIA
Anxiety
Past Surgical History: Reports Other
Additional Past Surgical History:
ORIF Left Shoulder
Gastric Bypass
Right SINA
Lumbar Laminectomy
Hernia Repair
Mohs Surgery
Bone Marrow Biopsy
Social History
Tobacco: Non-smoker
Alcohol: None
Drug: None
Family History
Family History: CAD
Allergies / Home Medications
Allergies reflects when Allergies were last updated in [employer].
Home Medications with original date entered in [employer]
Allergy/Medication List:
Allergies
Allergy/AdvReac Type Severity Reaction Status Date / Time
NKA - No Known Allergies Allergy nkda Uncoded 01/22/25 21:19
Home Medications
hydrochlorothiazide 50 mg tablet 50 mg PO DAILY 11/15/18
insulin glargine 100 unit/mL subcutaneous solution (Lantus U-100 Insulin) 22 units SC 11/15/18
insulin lispro 100 unit/mL subcutaneous pen (Humalog KwikPen (U-100) Insulin) 8 units SC AC 11/15/18
sertraline 100 mg tablet (Zoloft) 200 mg PO DAILY@0700 11/15/18
sacubitril 49 mg-valsartan 51 mg tablet (Entresto) 1 tab PO BID 12/20/22
tolterodine 4 mg capsule,extended release 24 hr 4 mg PO DAILY 12/20/22
trazodone 100 mg tablet 100 mg PO HS 12/20/22
gabapentin 300 mg capsule 300 mg PO TIDPRN PRN nereve pains 04/22/24
levothyroxine 150 mcg tablet (Synthroid) 150 mcg PO DAILY 04/22/24
metformin 500 mg tablet 1,000 mg PO BID 04/22/24
tirzepatide 5 mg/0.5 mL subcutaneous pen injector (Mounjaro) 5 mg SC QWEEK 04/22/24
Review of Systems
-
History Source: Patient
Constitutional: Reports No Symptoms
EENT: Reports No Symptoms
Respiratory: Reports No Symptoms
Cardiac: Reports No Symptoms
Abdomen/GI: Reports No Symptoms
: Reports No Symptoms
Musculoskeletal: Reports No Symptoms
Skin: Reports No Symptoms
Neurological: Reports Dizzy
Endocrine: Reports No Symptoms
Hematologic/Lymphatic: Reports No Symptoms
Psych: Reports No Symptoms
Physical Exam
Vital Signs
Vital Signs
Temp Pulse Resp BP Pulse Ox
98.0 F 70 15 108/45 98
04/27/25 21:00 04/27/25 22:00 04/27/25 22:00 04/27/25 22:00 04/27/25 22:00
Physical Exam
General: No Apparent Distress
HEENT: NormoCephalic, Anicteric, Moist mucous membranes and PERRLA; No Oxygen
Respiratory: Clear
Cardiac: S1/S2 and Regular Rhythm
Breast: Deferred by me
GI: Soft, Non Tender, Normal Bowel Sounds and Distended
Rectal: Deferred by Provider
Genito-urinary: Deferred by me
Musculoskeletal: No Clubbing, No Cyanosis, Edema, Left Lower Extremity (2+) and Edema, Right Lower Extremity (2+)
Skin: Warm
Neuro: AO x 3 and Nonfocal/grossly intact
Hematologic/Lymphatic: No Lymphadenopathy
Psych: Calm
Laboratory Results
-
04/27/25 15:07
04/27/25 15:07
Laboratory Results
Total Bilirubin 0.7 mg/dl (0.2-1.3) 04/27/25 15:07
AST 40 U/L (14-36) H 04/27/25 15:07
ALT 28 U/L (0-35) 04/27/25 15:07
Alkaline Phosphatase 156 U/L (38-126) H 04/27/25 15:07
Data Reviewed
-
CT Scan: Report Reviewed by me
Medical Tests (Nuc Med, Echo, EKG etc): Image Personally Visualized and interpreted
Lab Data: Labs Reviewed by me
Old Records: Reviewed
Impression/Plan
-
IMPRESSION:
74-year-old female with history of nonischemic cardiomyopathy with last echo showing EF of 60%, nonalcoholic liver cirrhosis complicated by recurrent ascites for which she has been started on diuretics and almost weekly paracentesis now found to
have low BPs at home on routine monitoring by daughter and sent to the emergency department. According to the patient BPs as low as 80 systolic at home. Workup in the emergency department is negative for an acute infection. Is negative for acute
cardiovascular process. She does appear to be globally volume overloaded with ascites as well as 2+ peripheral edema. Hemodynamics have been stable in the ED with SBP no lower than 108. She was however found to be in BRADEN with a creatinine of 1.4
and a BUN of 58
PLAN:
Low BP -suspect multifactorial as patient is on Entresto, Coreg, and newly started on Lasix and spironolactone for ascites. She is to the body of overloaded so I suspect that today's BP is more likely secondary to antihypertensives. No signs of
acute infection
- admit to med/surg
- hold entresto
- continue carvedilol with hold parameters
- check orthostatic vital signs
- ideally will attempt to continue lasix/spironolactone if nephrology ok with
- echo
BRADEN - Cr 1.4. Was previously 1.0 in January prior to initiation of diuretics and recent weekly paracentesis. Suspect this is due to diuretic use with ARNI and is likely acceptable. Still with peripheral edema.
- hold entresto
- hold lasix/spironolactone for now
- check urine Na/Cr
- check i/os
- kidney u/s
- nephrology consultation
DM II
- continue lantus 20 daily (30 at home)
- continue metformin
- sliding scale insulin
Cirrhosis
- last para on , no abdominal symptoms or leukocytosis. Hold off on repeat para for now
- continue lactulose/rifaximin
- holding diuretics temporarily
Hypothyroid
- levothyroxine 162.5 mcg daily
DVT PPX - heparin sq
Code status - Full Code
[2025-04-28 00:50] VITALS: BP 91/46; BMI 36.7
--- NOTE | 2025-04-28 02:03 | PTCARENOTE ---
Patient arrived to unit from ED via stretcher. Patient pulled over from stretcher to bed in room 316-2 on . Pt. AAOx3 and able to make needs known. No c/o pain or discomfort. Oriented to unit. Call almaraz within reach. Plan of care ongoing.
[2025-04-28 03:00] VITALS: BP 99/58
[2025-04-28 06:00] VITALS: BMI 36.7
[2025-04-28] MEDS: SYNTHROID 12.5 MCG PO (06:05)
[2025-04-28] MEDS: SYNTHROID 150 MCG PO (06:05)
[2025-04-28] MEDS: ZOLOFT 200 MG PO (06:05)
[2025-04-28 07:00] VITALS: BP 124/55
[2025-04-28 08:05] LABS: Glucose - Point of Care 160 mg/dl (70-99)
[2025-04-28 08:23] LABS: Hematocrit 35.4 % (37.0-47.0); Hemoglobin 11.4 g/dL (12.0-16.0); Mean Corp Hgb Conc. 32.2 g/dL (33.0-37.0); Mean Corpuscular Volume 87.8 fL (81.0-99.0); Platelet Count 60 10^3/uL (130-400); Red Cell Dist. Width 15.3 % (11.5-14.5)
[2025-04-28] MEDS: GLUCOPHAGE 1000 MG PO (08:57)
[2025-04-28] MEDS: ENTRESTO 49 MG/51 MG 1 TAB PO (08:57)
[2025-04-28] MEDS: XIFAXAN 550 MG PO ×2 (08:57→20:12)
[2025-04-28] MEDS: LIPITOR 40 MG PO (08:57)
[2025-04-28] MEDS: COREG 3.125 MG PO (08:58)
[2025-04-28] MEDS: DETROL LA 4 MG PO (08:59)
[2025-04-28] MEDS: DUPHALAC/CHRONULAC 20 GRAMS PO (08:59)
[2025-04-28] MEDS: LANTUS 0.2 UNITS SC (09:00)
[2025-04-28] MEDS: NOVOLOG FLEXPEN-LOW RESISTANCE 1 UNITS SC ×3 (09:50→17:45)
[2025-04-28 09:53] LABS: Blood Urea Nitrogen 51 mg/dl (7-17); Calcium 8.8 mg/dl (8.4-10.2); Carbon Dioxide 21 mmol/L (22-30); Chloride 115 mmol/L (98-107); Estimated Creatinine Clearance 46 ml/min; Glucose 149 mg/dl (70-99); Magnesium 1.9 mg/dl (1.6-2.3); Potassium 5.3 mmol/L (3.5-5.1); Sodium 142 mmol/L (135-145); eGFR 47.50
[2025-04-28 10:03] LABS: TSH 5.80 uIU/ml (0.47-4.68)
--- NOTE | 2025-04-28 10:16 | CM ---
Patient seen at bedside with daughter Pretty
IA completed
Dx: BRADEN
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
Patient currently living with daughter in a 2 story home, 1st floor set up bed/bath
PLOF: Patient uses wheelchair mostly, requires assistance with ADL's
DME: Walker, wheelchair, cane, shower chair, commode
Current with [facility] and has been at [facility] in the past
daughter states does not want rehab wants to go home with [facility]
PCP: Radha Li
Pharmacy: [facility]
PLAN: anticipate home with [facility] when stable
--- NOTE | 2025-04-28 10:23 | VNURNOTE ---
Chart reviewed. Patient is current with [facility]. Will continue to follow hospital course and DC plans.
--- NOTE | 2025-04-28 11:28 | W.PN.HOSP.TC ---
Today's Communication/Plan
-
Hold Entresto and spironolactone
Follow echo
Follow nephrology input
Assessment / Plan
Assessment / Plan
IMPRESSION:
74-year-old female with history of nonischemic cardiomyopathy with last echo showing EF of 60%, nonalcoholic liver cirrhosis complicated by recurrent ascites for which she has been started on diuretics and almost weekly paracentesis now found to
have low BPs at home on routine monitoring by daughter and sent to the emergency department. According to the patient BPs as low as 80 systolic at home. Workup in the emergency department is negative for an acute infection. Is negative for acute
cardiovascular process. She does appear to be globally volume overloaded with ascites as well as 2+ peripheral edema. Hemodynamics have been stable in the ED with SBP no lower than 108. She was however found to be in BRADEN with a creatinine of 1.4
and a BUN of 58
PLAN:
Low BP -suspect multifactorial including medications, liver disease. No extrarenal losses. No obvious signs of acute focal infection
- hold entresto
- Hold Aldactone
- check orthostatic vital signs
- echo
- Patient is not on Lasix or Coreg currently-confirmed by daughter at bedside
BRADEN - Cr 1.4. Was previously 1.0 in January prior to initiation of diuretics and recent weekly paracentesis. Suspect this is due to diuretic use with ARNI and is likely acceptable. Still with peripheral edema.
- hold entresto
- hold spironolactone for now
- check urine Na/Cr
- check i/os
- kidney u/s
- nephrology consultation
History of nonischemic cardiomyopathy with a EF of 60%
Patient currently on Entresto and Aldactone.
Will check with cardiology regarding need of further Entresto.
DM II
- continue lantus 20 daily (30 at home)
- continue metformin
- sliding scale insulin
Cirrhosis
- last para on , no abdominal symptoms or leukocytosis. Hold off on repeat para for now
- continue lactulose/rifaximin
- holding diuretics temporarily
Hypothyroid
- levothyroxine 162.5 mcg daily
Left shoulder pain-obtain x-ray
DVT PPX - heparin sq
Code status - Full Code
Anticipated Discharge: 24 - 48 hours
Subjective/Interval History
-
Date of Service: April 28, 2025
Low blood pressure is brought to the ER. Daughter at bedside who keeps an eye on the blood pressure at home. She brought readings of which includes reading for the last 3 days. Most of the time systolic more than 90 except in the afternoons on
consecutive days.
Denies any nausea vomiting or diarrhea.
Denies any medication changes in the last month.
She is only now on Entresto and Aldactone. Lasix and Coreg was discontinued more than a month ago. Apparently they increased the dose of Aldactone.
She continues to get weekly paracentesis. Her liver care is at [facility].
Denies any chest pain or shortness of breath. No fever or chills.
Complains of left shoulder pain. No chest pain. Localized to the left shoulder on the left arm area. Feels movement makes it worse. She had a fracture and hardware in the left arm in the past
Objective Data
-
Labs:
Laboratory Results
04/28/25
08:03
WBC 3.2 L
Hgb 11.4 L
Hct 35.4 L
Plt Count 60 L
Sodium 142
Potassium 5.3 H
Chloride 115 H
Carbon Dioxide 21 L
BUN 51 H
Creatinine 1.2 H
Glucose 149 H
Calcium 8.8
Vital Signs:
Vital Signs
Temp Pulse Resp BP Pulse Ox
98.2 F 74 18 124/55 100
04/28/25 07:00 04/28/25 08:57 04/28/25 07:00 04/28/25 08:57 04/28/25 07:00
Physical Exam
-
General: Comfortable
Respiratory: Clear to Auscultation and Non Labored Respirations; Negative Accessory Resp Muscle Use
Cardiac: Regular Rhythm and S1/S2
GI: Soft, Nontender and Distended (Ascites)
Musculoskeletal: Negative No Edema (Trace bilateral lower extremity edema)
Neuro: AO x 3
Psych: Calm
Data Reviewed
-
Labs: Labs Reviewed by me
[2025-04-28 11:38] LABS: Glucose - Point of Care 186 mg/dl (70-99)
--- NOTE | 2025-04-28 12:53 | W.CON.NEPH ---
Consultation
-
Date/Time Consultation Requested: 04/28/2025 7 AM
Date/Time Consultation Performed: 04/28/2025 10 AM
Requesting Provider: Dr. Beckford
Performing Provider: Dr. Hein
Reason for Consultation: BRADEN
Medical History
-
Chief Complaint: BRADEN
History of Present Illness:
This is a 74-year-old female who has nonalcoholic cirrhosis with ascites who receives weekly paracentesis usually around 7 L each time. She is on chronic diuretic therapy and followed by hepatology. She has diabetes mellitus type 2 on insulin
therapy which is controlled. She is also on Entresto but is not sure why. She recently has also been told to take Lokelma 2 or 3 times daily. This has not been more than a month. She has normal renal function at baseline. She came to the
emergency room because of hypotension. Her creatinine was noted to be elevated at 1.4. We are asked to assist in management of the BRADEN and hyperkalemia.
Past Medical History
Non-Alcoholic Cirrhosis
Hypothyroidism
DM-II with Neuropathy and Retinopathy
Obesity
Pulmonary Embolism
Spinal Stenosis
Non-Melanoma Skin Cancer
GERD
VENESSA
ADHD
Pancytopenia
CVA / TIA
Anxiety
ORIF Left Shoulder
Gastric Bypass
Right SINA
Lumbar Laminectomy
Hernia Repair
Mohs Surgery
Bone Marrow Biopsy
Social History
Tobacco: Non-Smoker
Alcohol: None
Family History
Family History: Not Pertinent
Allergies / Home Medications
Allergy/AdvReac Type Severity Reaction Status Date / Time
No Known Allergies Allergy Verified 01/23/25 18:06
�Medication �Instructions �Recorded �Confirmed �Type
insulin lispro 100 unit/mL 10 units SC AC Diabetes 11/15/18 04/28/25 History
subcutaneous pen (Humalog KwikPen
(U-100) Insulin)
sertraline 100 mg tablet (Zoloft) 200 mg PO DAILY@0700 11/15/18 04/28/25 History
depression/anxiety
sacubitril 49 mg-valsartan 51 mg 1 tab PO DAILY Heart Failure 12/20/22 04/28/25 History
tablet (Entresto)
gabapentin 300 mg capsule 300 mg PO TID Pain 04/22/24 04/28/25 History
lactulose 10 gram/15 mL oral 20 g (30 mL) PO DAILY #1,200 mL 01/26/25 04/28/25 Rx
solution
atorvastatin 10 mg tablet 10 mg PO HS cholesterol 04/28/25 04/28/25 History
insulin glargine 100 unit/mL (3 38 unit SC DAILY Diabetes 04/28/25 04/28/25 History
mL) subcutaneous pen (Lantus
Solostar U-100 Insulin)
insulin lispro 100 unit/mL 0 unit SC .SLIDING SCALE Diabetes 04/28/25 04/28/25 History
subcutaneous pen
ipratropium 0.5 mg-albuterol 3 mg 3 ml inhalation DAILYPRN PRN sob 04/28/25 04/28/25 History
(2.5 mg base)/3 mL nebulization
soln
levothyroxine 200 mcg tablet 200 mcg PO DAILY@0600 Thyroid 04/28/25 04/28/25 History
sodium bicarbonate 650 mg tablet 650 mg PO BID Electrolyte Repletion 04/28/25 04/28/25 History
sodium zirconium cyclosilicate 10 10 g PO TID high K+ level 04/28/25 04/28/25 History
gram oral powder packet (Lokelma)
spironolactone 100 mg tablet 100 mg PO DAILY heart disease/liver 04/28/25 04/28/25 History
tolterodine 4 mg capsule,extended 4 mg PO DAILY Urinary Issue 04/28/25 04/28/25 History
release 24 hr
Review of Systems
-
No chest pain or shortness of breath.
Abdominal distention
All other systems: Negative unless noted
Physical Exam
Vital Signs
Vital Signs
Temp Pulse Resp BP Pulse Ox
98.2 F 74 18 124/55 100
04/28/25 07:00 04/28/25 08:57 04/28/25 07:00 04/28/25 08:57 04/28/25 07:00
Lab Results
WBC 3.2 10^3/uL (4.8-10.8) L 04/28/25 08:03
RBC 4.03 10^6/uL (4.20-5.40) L 04/28/25 08:03
Hgb 11.4 g/dL (12.0-16.0) L 04/28/25 08:03
Hct 35.4 % (37.0-47.0) L 04/28/25 08:03
Plt Count 60 10^3/uL (130-400) L 04/28/25 08:03
Sodium 142 mmol/L (135-145) 04/28/25 08:03
Potassium 5.3 mmol/L (3.5-5.1) H 04/28/25 08:03
Chloride 115 mmol/L (98-107) H 04/28/25 08:03
Carbon Dioxide 21 mmol/L (22-30) L 04/28/25 08:03
BUN 51 mg/dl (7-17) H 04/28/25 08:03
Creatinine 1.2 mg/dL (0.6-1.0) H 04/28/25 08:03
eGFR 47.50 04/28/25 08:03
Glucose 149 mg/dl (70-99) H 04/28/25 08:03
Calcium 8.8 mg/dl (8.4-10.2) 04/28/25 08:03
Albumin 3.0 g/dl (3.5-5.0) L 04/27/25 15:07
Laboratory Tests
01/26/25
06:45
Potassium 4.1
Creatinine 1.0
Physical Exam
Patient is awake alert oriented and in no distress. Mood and affect were pleasant, insight and judgment were good. Pupils are equal round and reactive to light, extraocular movements are intact, sclera were anicteric. Hearing was normal, ears and
nose are intact. Oropharynx was clear. Neck was supple with trachea midline and no thyromegaly. Heart was regular rate and rhythm without rubs. Lower extremities without edema. Lungs were clear to auscultation bilaterally and with normal
excursion. Abdomen was soft, nontender, distended, with normal active bowel sounds, and no hepatosplenomegaly. Skin was without rash and with normal turgor.
Data Reviewed
-
CT Scan: Report Reviewed by me (CT head 04/27/2025 no acute disease)
Medical Tests (Nuc Med, Echo etc): Image Personally Visualized and interpreted (EKG 04/27/2025 by my reading normal sinus rhythm left axis deviation inferior Q)
Labs: Labs Reviewed by me
Old Records: Reviewed
Assessment/Plan
-
Assessment
BRADEN
Hypotension
Nonalcoholic cirrhosis
Ascites
Hyperkalemia
Metabolic acidosis
Hypothyroidism
Diabetes mellitus type 2
Plan
BP has improved off diuretics
May continue Entresto
Follow potassium
May use Lokelma as needed
Holding diuretics for now
Will need paracentesis this week
Follow BMP, BRADEN likely mediated by hypotension
[2025-04-28 15:00] VITALS: BP 104/47
[2025-04-28 16:40] LABS: Glucose - Point of Care 172 mg/dl (70-99)
[2025-04-28] MEDS: NOVOLOG FLEXPEN 10 UNITS SC (17:45)
[2025-04-28] MEDS: DESENEX/MITRAZOL/ZEASORB 1 APPLIC TOPICAL (20:11)
[2025-04-28] MEDS: SODIUM BICARBONATE 650 MG PO (20:12)
[2025-04-28] MEDS: HEPARIN 5000 UNITS SC (20:12)
[2025-04-28 20:39] LABS: Glucose - Point of Care 163 mg/dl (70-99)
[2025-04-28 23:00] VITALS: BP 133/59
[2025-04-29 06:00] VITALS: BMI 36.2
[2025-04-29] MEDS: SYNTHROID 200 MCG PO (06:01)
[2025-04-29] MEDS: ZOLOFT 200 MG PO (06:02)
[2025-04-29 07:00] VITALS: BP 114/58
--- NOTE | 2025-04-29 08:46 | PN.CDI ---
CDI
- -
CDI:
Physician Documentation Request
Admit Date: 04/27/25 23:29
Dear Doctor Randy,
Patient admitted with BRADEN.
04/28 Nursing skin assessment, 'Stage 2 right ischium pressure injury, POA.'
Physician documentation of the type and location of wounds is required for compliant documentation. Based on the above clinical findings and your assessment, please provide the following in your progress note:
Type (etiology) of ulcer/wound:
- Pressure (decubitus) ulcer
- Other
- Unable to determine
For a pressure ulcer, please also include the stage* of the ulcer:
- Stage 1 - Skin intact, non-blanchable redness
- Stage 2 - Partial thickness loss of dermis, includes intact or open blister
- Stage 3 - Full thickness tissue not including bone, tendon or muscle
- Stage 4 - Full thickness tissue loss, including exposed bone, tendon or muscle
- Unstageable - Full thickness loss in which the base of the ulcer is covered by slough (yellow, franklin, cary, green or brown) and/or eschar (franklin, brown or black) in the wound bed.
- Unable to determine
Use of terms such as suspected, likely, concern for, or probable (associated with a specific diagnosis that is being evaluated, monitored, or treated as if it exists) are acceptable and can be coded in the inpatient setting, when documented at the
time of discharge.
Thank you,
Angelique LU,RN,CCDS
CDI Specialist
Available via [place] text
Please use your independent medical judgment in providing your response.
*Source: National Pressure Ulcer Advisory Panel (NPUAP)
[2025-04-29] MEDS: ENTRESTO 49 MG/51 MG 1 TAB PO (08:48)
[2025-04-29] MEDS: DUPHALAC/CHRONULAC 20 GRAMS PO (08:49)
[2025-04-29] MEDS: HEPARIN 5000 UNITS SC (08:49)
[2025-04-29] MEDS: XIFAXAN 550 MG PO (08:49)
[2025-04-29] MEDS: DETROL LA 4 MG PO (08:49)
[2025-04-29] MEDS: SODIUM BICARBONATE 650 MG PO (08:49)
[2025-04-29] MEDS: DESENEX/MITRAZOL/ZEASORB 1 APPLIC TOPICAL (08:50)
[2025-04-29 08:56] LABS: Glucose - Point of Care 109 mg/dl (70-99)
--- NOTE | 2025-04-29 08:56 | PN.CDI ---
CDI
- -
CDI:
Physician Documentation Request
Admit Date: 04/27/25 23:29
Dear Doctor Randy,
Patient admitted with BRADEN.
WBC, RBC and platelet count's documented below:
Laboratory Tests
04/27/25 04/28/25
15:07 08:03
WBC 3.0 L 3.2 L
RBC 3.95 L 4.03 L
Plt Count 63 L 60 L
Based on the above, please clarify in the notes the appropriate diagnosis, if significant, that supports the above abnormalities and additional evaluation, monitoring and/or treatment rendered:
Pancytopenia
Insignificant abnormal lab findings
Other
Use of terms such as suspected, likely, concern for, or probable (associated with a specific diagnosis that is being evaluated, monitored, or treated as if it exists) are acceptable and can be coded in the inpatient setting, when documented at the
time of discharge.
Thank you,
Angelique LU,RN,CCDS
CDI Specialist
Available via [employer] text
Please use your independent medical judgment in providing your response.
[2025-04-29] MEDS: NOVOLOG FLEXPEN-LOW RESISTANCE SC ×2 (08:57→10:51)
[2025-04-29] MEDS: LANTUS 0.2 UNITS SC (10:50)
[2025-04-29] MEDS: NOVOLOG FLEXPEN 10 UNITS SC ×2 (10:51→15:04)
[2025-04-29 11:40] LABS: Glucose - Point of Care 159 mg/dl (70-99)
[2025-04-29 11:59] LABS: Blood Urea Nitrogen 48 mg/dl (7-17); Calcium 9.1 mg/dl (8.4-10.2); Carbon Dioxide 22 mmol/L (22-30); Chloride 116 mmol/L (98-107); Estimated Creatinine Clearance 46 ml/min; Glucose 121 mg/dl (70-99); Potassium 5.3 mmol/L (3.5-5.1); Sodium 142 mmol/L (135-145); eGFR 47.50
--- NOTE | 2025-04-29 12:10 | W.PN.NEPH.PH ---
Today's Communication / Plan
-
see plan
Assessment/Plan
-
Assessment
BRADEN
Hypotension
Nonalcoholic cirrhosis
Ascites
Hyperkalemia
Metabolic acidosis
Hypothyroidism
Diabetes mellitus type 2
Plan
cr stable at 1.2
mild hyperkalemia still
maintain off ENtresto (primary spoke with cards)
would hold Aldactone still in view of persistent mild hyperkalemia until seen by her GI at [facility]
would start low dose lasix 20mg daily and recheck labs in 3days
BP has improved off diuretics
Follow low potassium diet
May use Lokelma as needed
mild met acidosis stable on PO bicarb
Will need paracentesis this week
no objection to d/c
-
-
Date of Service: April 29, 2025
CC / HPI / ROS
-
Chief Complaint:
BRADEN, hyperkalemia
History of Present Illness:
cr no change at 1.2
k still at 5.3
BP stable, wt stable
Review of Systems:
no cp or sob
no new complaints
Labs
-
Labs:
WBC 3.2 10^3/uL (4.8-10.8) L 04/28/25 08:03
RBC 4.03 10^6/uL (4.20-5.40) L 04/28/25 08:03
Hgb 11.4 g/dL (12.0-16.0) L 04/28/25 08:03
Hct 35.4 % (37.0-47.0) L 04/28/25 08:03
Plt Count 60 10^3/uL (130-400) L 04/28/25 08:03
Sodium 142 mmol/L (135-145) 04/29/25 10:34
Potassium 5.3 mmol/L (3.5-5.1) H 04/29/25 10:34
Chloride 116 mmol/L (98-107) H 04/29/25 10:34
Carbon Dioxide 22 mmol/L (22-30) 04/29/25 10:34
BUN 48 mg/dl (7-17) H 04/29/25 10:34
Creatinine 1.2 mg/dL (0.6-1.0) H 04/29/25 10:34
eGFR 47.50 04/29/25 10:34
Glucose 121 mg/dl (70-99) H 04/29/25 10:34
Calcium 9.1 mg/dl (8.4-10.2) 04/29/25 10:34
Albumin 3.0 g/dl (3.5-5.0) L 04/27/25 15:07
Physical Exam
-
Vital Signs:
Vital Signs
Temp Pulse Resp BP Pulse Ox
98.2 F 79 18 114/58 97
04/29/25 07:00 04/29/25 08:48 04/29/25 07:00 04/29/25 08:48 04/29/25 07:00
Cardiovascular:: Regular rate and rhythm
Respiratory:: Bilateral: CTA
Lung Excursion:: Normal
Abdomen:: Distended, Nontender and Soft
Extremity Edema:: +1: Bilateral: (trace)
Cast Catheter: No
--- NOTE | 2025-04-29 13:03 | CM ---
Addendum entered by Saba Goncalves 04/29/25 15:55:
IMM explained & signed. In chart
daughter to transport
Original Note:
Patient seen at bedside
[facility]
prefers to go [facility] with [facility]
PLAN: Home with [facility]
[2025-04-29 14:46] VITALS: BP 93/50; PULSE 79
[2025-04-29 15:00] VITALS: BP 109/45
[2025-04-29 15:04] LABS: Glucose - Point of Care 96 mg/dl (70-99)
--- NOTE | 2025-04-29 15:49 | W.PN.HOSP.TC ---
Addendum entered and electronically signed by Pasquale Padilla MD 05/02/25 12:56:
Stage 2 right ischium pressure injury, POA
Pancytopenia noted
Original Note:
Today's Communication/Plan
-
DC
Assessment / Plan
Assessment / Plan
IMPRESSION:
74-year-old female with history of nonischemic cardiomyopathy with last echo showing EF of 60%, nonalcoholic liver cirrhosis complicated by recurrent ascites for which she has been started on diuretics and almost weekly paracentesis now found to
have low BPs at home on routine monitoring by daughter and sent to the emergency department. According to the patient BPs as low as 80 systolic at home. Workup in the emergency department is negative for an acute infection. Is negative for acute
cardiovascular process. She does appear to be globally volume overloaded with ascites as well as 2+ peripheral edema. Hemodynamics have been stable in the ED with SBP no lower than 108. She was however found to be in BRADEN with a creatinine of 1.4
and a BUN of 58
PLAN:
Low BP -suspect multifactorial including medications, liver disease. No extrarenal losses. No obvious signs of acute focal infection
- hold entresto
- Hold Aldactone with hyperkalemia
- echo with normal EF, stage II diastolic dysfunction, trivial pericardial effusion. Compared to echo in 2022 PASP has decreased from 50-55 mmHg to 31 mmHg of mercury.
- Patient is not on Lasix or Coreg currently-confirmed by daughter at bedside
-Blood pressure is normal medication.
BRADEN - Cr 1.4. Was previously 1.0 in January prior to initiation of diuretics and recent weekly paracentesis. Suspect this is due to diuretic use with ARNI and is likely acceptable. Still with peripheral edema.
Hyperkalemia
- Creatinine improved to 1.2
- hold entresto, spironolactone going forward with the mild hyperkalemia. For ascites management will restart Lasix.
- Appreciate nephrology input-recheck labs in 3 days.
Continue with p.o. bicarbonate
History of nonischemic cardiomyopathy with a EF of 60%
Patient currently on Entresto and Aldactone.
Will check with cardiology regarding need of further Entresto.
DM II
- continue lantus 20 daily (30 at home)
- continue metformin
- sliding scale insulin
Cirrhosis
- last para on , no abdominal symptoms or leukocytosis. Hold off on repeat para for now
- continue lactulose/rifaximin. Patient has loose stools. Check C. difficile and if negative consider decreasing the dose of lactulose.
- Started on Lasix for ascites management. Patient advised to return back to primary GI at [facility] regarding use of Aldactone again
Hypothyroid
- levothyroxine 162.5 mcg daily
Left shoulder pain-obtain x-ray
DVT PPX - heparin sq
Code status - Full Code
DC home after PT OT eval and C. difficile testing
Anticipated Discharge: Today
Subjective/Interval History
-
Date of Service: April 29, 2025
Denies any dizziness. No nausea vomiting. Denies shortness of breath. Keen to go home.
Notified by daughter that she has more frequency of bowels. No abdominal pain. No fever or chills. Next
Objective Data
-
Labs:
Laboratory Results
04/29/25
10:34
Sodium 142
Potassium 5.3 H
Chloride 116 H
Carbon Dioxide 22
BUN 48 H
Creatinine 1.2 H
Glucose 121 H
Calcium 9.1
Vital Signs:
Vital Signs
Temp Pulse Resp BP Pulse Ox
98.2 F 79 18 114/58 97
04/29/25 07:00 04/29/25 08:48 04/29/25 07:00 04/29/25 08:48 04/29/25 07:00
I&O
04/28/25 04/29/25 04/30/25
06:59 06:59 06:59
Intake Total 560 / 560
Balance 560 / 560
Physical Exam
-
General: Comfortable
Respiratory: Clear to Auscultation and Non Labored Respirations; Negative Accessory Resp Muscle Use
Cardiac: Regular Rhythm and S1/S2
GI: Soft, Nontender, Normal Bowel Sounds and Distended
Neuro: AO x 3
Psych: Calm
Data Reviewed
-
Labs: Labs Reviewed by me
[2025-04-29 18:04] LABS: Glucose - Point of Care 146 mg/dl (70-99)
== END 2025-04-29 19:13 | disposition home health service (06) | DRG 315 ==
LOC: 3 WEST ACU 23:29
PROVIDERS: Internal Medicine; Physician Assistant; Student in an Organized Health Care Education/Training Program; ADMITTING PHYSICIAN Internal Medicine; ATTENDING PHYSICIAN Internal Medicine; EMERGENCY PHYSICIAN Emergency Medicine; FAMILY PHYSICIAN Physician Assistant Medical; OTHER PHYSICIAN Specialist
DX: I95.9 Hypotension, unspecified (principal); D61.818 Other pancytopenia; N17.9 Acute kidney failure, unspecified; E87.20 Acidosis, unspecified; R18.8 Other ascites; I42.8 Other cardiomyopathies; E86.0 Dehydration; K74.60 Unspecified cirrhosis of liver; K21.9 Gastro-esophageal reflux disease without esophagitis; E11.40 Type 2 diabetes mellitus with diabetic neuropathy, unspecified; E11.319 Type 2 diabetes mellitus with unspecified diabetic retinopathy without macular edema; E03.9 Hypothyroidism, unspecified; E66.9 Obesity, unspecified; E78.5 Hyperlipidemia, unspecified; E87.5 Hyperkalemia; F32.A Depression, unspecified; F41.9 Anxiety disorder, unspecified; G47.33 Obstructive sleep apnea (adult) (pediatric); M19.012 Primary osteoarthritis, left shoulder; Z86.711 Personal history of pulmonary embolism; Z96.641 Presence of right artificial hip joint; L89.312 Pressure ulcer of right buttock, stage 2; T46.5X5A Adverse effect of other antihypertensive drugs, initial encounter; I10 Essential (primary) hypertension; Z98.84 Bariatric surgery status; Z79.899 Other long term (current) drug therapy; Z79.890 Hormone replacement therapy; Z79.4 Long term (current) use of insulin; Z68.36 Body mass index [BMI] 36.0-36.9, adult
CPT/HCPCS: 70450; 73030; 80048; 80053; 81003; 81015; 82140; 82962; 83735; 84443; 85025; 85027; 87086; 87324; 87449; 93005; 93306; 96374; 97162; 97166; 97535; 99285

== ENCOUNTER → 2025-06-16 11:51 | Outpatient (REF) | payer MEDICARE, SELFPAY ==
[2025-06-16 17:49] LABS: ALT (SGPT) 27 U/L (0-35); AST (SGOT) 34 U/L (14-36); Albumin 3.1 g/dl (3.5-5.0); Alkaline Phosphatase 166 U/L (38-126); Blood Urea Nitrogen 52 mg/dl (7-17); Calcium 8.8 mg/dl (8.4-10.2); Carbon Dioxide 19 mmol/L (22-30); Chloride 107 mmol/L (98-107); Glucose 290 mg/dl (70-99); Potassium 4.9 mmol/L (3.5-5.1); Sodium 132 mmol/L (135-145); Total Protein 5.9 g/dl (6.3-8.2); eGFR 47.50
[2025-06-16 17:55] LABS: Hematocrit 35.3 % (37.0-47.0); Hemoglobin 11.7 g/dL (12.0-16.0); Mean Corp Hgb Conc. 33.1 g/dL (33.0-37.0); Mean Corpuscular Volume 87.4 fL (81.0-99.0); Nucleated Red Blood Cells % 0 %; Platelet Count 65 10^3/uL (130-400); Red Cell Dist. Width 15.4 % (11.5-14.5)
[2025-06-17 09:40] LABS: Glycohemoglobin (HgbA1c) 6.5 % (4.0-5.6)
== END ==
LOC: HWRAD 11:51
PROVIDERS: ATTENDING PHYSICIAN Nurse Practitioner Adult Health
DX: R09.89 Other specified symptoms and signs involving the circulatory and respiratory systems (principal); K72.90 Hepatic failure, unspecified without coma; K74.60 Unspecified cirrhosis of liver; N18.31 Chronic kidney disease, stage 3a; D69.6 Thrombocytopenia, unspecified; E11.9 Type 2 diabetes mellitus without complications
CPT/HCPCS: 36415; 71046; 80053; 83036; 83880; 84443; 85025